=== PATIENT | female | born 1990 | race Caucasian/White ===

== ENCOUNTER 2023-06-01 11:26 | Outpatient (CLI) | payer OTHER, SELFPAY ==
--- NOTE | 2023-06-01 11:30 | CRLHL7_ITS ---
For Patients: As a result of the Cures Act, medical imaging exams and procedure reports are released immediately into your electronic medical record. You may view this report before your referring provider. If you have questions, please contact your health care provider. INDICATION: Cervicalgia. COMPARISON: None TECHNIQUE: CT of the cervical spine without contrast. Multiplanar axial, coronal, and sagittal reformats were reconstructed. FINDINGS: No fracture or dislocation. No disc degenerative change. No facet degenerative change. No severe neural foraminal stenosis. No central canal stenosis. No focal bony lesions. Left thyroid nodules. IMPRESSION: 1. Normal cervical spine CT. 2. Left thyroid nodules. Recommend thyroid ultrasound. Please note that all CT scans at this facility use dose modulation, iterative reconstruction, and/or weight-based dosing when appropriate to reduce radiation dose to as low as reasonably achievable. Dictated by Azucena Choudhary MD @ 06/01/2023 12:36:42 PM (Electronically Signed)
== END 2023-06-01 11:27 | disposition home or self-care (01) ==
PROVIDERS: PCP Family Medicine; Visit Provider Nurse Practitioner Family
DX: M54.2 Cervicalgia (principal); E04.1 Nontoxic single thyroid nodule
CPT/HCPCS: 72125; 81015; 85025

== ENCOUNTER 2023-06-03 10:45 | Outpatient (CLI) | payer OTHER, SELFPAY ==
--- NOTE | 2023-06-03 11:00 | CRLHL7_ITS ---
For Patients: As a result of the Cures Act, medical imaging exams and procedure reports are released immediately into your electronic medical record. You may view this report before your referring provider. If you have questions, please contact your health care provider. INDICATION: Thyroid nodules. TECHNIQUE: Ultrasound thyroid with adorno-scale and color Doppler analysis. COMPARISON: CT cervical spine May 24, 2023. FINDINGS: Right lobe: 4.6 x 0.9 x 1.4 cm. Lesion 1: 0.5 cm, mixed, TR3. Left lobe: 4.4 x 1.3 x 1.6 cm. Lesion 1: 1.3 x 1.1 x 0.9 cm, mixed, TR3. Lesion 2: 0.7 cm, cystic, TR2. Isthmus: Unremarkable. Echotexture of the thyroid parenchyma is normal. Color Doppler analysis demonstrates normal vascularity. No evidence of lymphadenopathy or parathyroid mass. IMPRESSION: There are 3 distinct thyroid nodules. The largest and most suspicious is in the left lobe measuring up to 1.3 cm with a TI-RADS category of TR3. - ACR TI-RADS [email or web address] TR1: Benign No FNA TR2: Not Suspicious No FNA TR3: Mildly Suspicious FNA if greater than or equal to 2.5 cm Follow if greater than or equal to 1.5 cm TR4: Moderately Suspicious FNA if greater than or equal to 1.5 cm Follow if greater than or equal to 1 cm TR5: Highly Suspicious FNA if greater than or equal to 1 cm Follow if greater than or equal to 0.5 cm Dictated by Tyler Reynolds MD @ 06/04/2023 11:16:42 AM (Electronically Signed)
== END 2023-06-03 10:46 | disposition home or self-care (01) ==
LOC: US 10:47
PROVIDERS: PCP Family Medicine; Visit Provider Nurse Practitioner Family
DX: E04.1 Nontoxic single thyroid nodule (principal)
CPT/HCPCS: 76536

== ENCOUNTER 2023-06-07 10:53 | Outpatient (CLI) | payer OTHER, SELFPAY | END 2023-06-07 10:54 | disposition home or self-care (01) | PROVIDERS: PCP Family Medicine; Visit Provider Family Medicine | DX: E04.1 Nontoxic single thyroid nodule (principal) | CPT/HCPCS: 84443 ==

== ENCOUNTER 2023-08-04 10:30 | Outpatient (RCR) | payer OTHER, SELFPAY | END 2023-08-04 11:37 | disposition home or self-care (01) | PROVIDERS: PCP Family Medicine; Visit Provider Nurse Practitioner Family | DX: M54.50 Low back pain, unspecified (principal); M54.2 Cervicalgia; R10.9 Unspecified abdominal pain; M25.511 Pain in right shoulder; M25.512 Pain in left shoulder; V89.2XXA Person injured in unspecified motor-vehicle accident, traffic, initial encounter; Z74.09 Other reduced mobility; Z51.89 Encounter for other specified aftercare | CPT/HCPCS: 97110; 97140; 97161 ==

== ENCOUNTER 2023-08-17 07:07 | Outpatient (CLI) | payer OTHER, SELFPAY ==
--- OUTSIDE RECORDS SUMMARY | 2023-08-17 07:10 | XMS_ITS | Encounter Summary ---
Author Name Unknown Organization [facility] Address [address] [place] [address] Care Team Providers Care Prosthetist Name Role Phone Unavailable Primary Care Provider Unavailabl e Encounter Details Date Type Department Care Team (Latest Contact Info) Description 07/19/2023 3:16 PM SKIP HOIST OPERATOR - 07/19/2023 11:59 PM SKIP HOIST OPERATOR Hospital Encounter Department of Laboratory Medicine and Pathology, [facility] in [place], [place] [address] [place] [address] Alden John M.D. [address] [place] [phone] Nodule Thyroid Nontoxic Discharge Disposition: Home or Self Care Social History Tobacco Use Types Packs/Day Years Used Date Smoking Tobacco: Never Assessed [facility] Utilities Answer Date Recorded In the past 12 months has [facility] [employer], gas, oil, or water [employer] threatened to shut off services in your home? No 07/15/2023 Exercise Vital Sign Answer Date Recorde d On average, how many days pe r week do you engage in moderate to strenuous exercise (like a brisk walk)? 3 days 07/15/2023 On average, how many minutes do you engage in exercise at this level? 30 min 07/15/2023 Hunger Vital Sign Answer Date Recorded Within the past 12 months, y ou worried that your food would run out before you got the money to buy more. Never true 07/15/19 24 Within the past 12 months, t he food you bought just didn't last and you didn't have money to get more. Never true 07/15/2023 PRAPARE - Transportation Answer Date Re corded In the past 12 months, has l ack of transportation kept you from medical appointments or from getting medications? No 07/05 In the past 12 months, has l ack of transportation kept you from meetings, work, or from getting things needed for daily living? No 07/15/2023 Nutrition Answer Date Recorded Nutrition: EVOO Fat Source Unknown 07/15 On average, how many serving s of fruits and vegetables do you eat per day (serving size is equal to 1 cup or approximately the size of a tennis ball)? 0-2 07/15/2023 Dental Answer Date Recorded Dental: Regular Dentist Yes 07/15/19 Employment Answer Date Recorded Employment status Employed and actively working without restrictions 07/15/2023 Housing Stability Answer Date Recorded What is your living situation today? [facility] 07/15/2023 Sex and Gender Information Value Date Recorded Sex Assigned at Female 06/07/2023 10:27 AM SKIP HOIST OPERATOR Gender Identity Female 06/07/2023 10:27 AM SKIP HOIST OPERATOR Sexual Orientation Straight 06/07/2023 10 :27 AM SKIP HOIST OPERATOR documented as of this encounter Medications at Time of Discharge Medication Sig Dispensed Refills Start Date End Date albuterol 90 mcg/actuation inhaler Inhale 2 puffs every 4 (four) hours as needed for shortness of breath or wheezing. 0 ascorbic acid, vitamin C, (VITAMIN C) 100 mg tablet Take 1 tablet by mouth daily. 0 08/09/2012 Ativan 1 mg tablet Take 1 mg by mouth 2 (two) times a day as needed. 0 buPROPion XL (WELLBUTRIN XL) 150 mg 24 hr tablet Take 150 mg by mouth every morning. 0 04/20/2023 cholecalciferol (VITAMIN D3) 25 mcg (1,000 Unit) capsule Take 1 capsule by mouth daily. 0 08/09/2012 cyclobenzaprine (FLEXERIL) 5 mg tablet Take 1 tablet by mouth 3 (three) times a day with meals. 0 05/30/2023 hydrOXYzine (ATARAX) 25 mg tablet Take 25 mg by mouth 3 (three) times a day. 0 hydrOXYzine (VISTARIL) 25 mg capsule Take 25 mg by mouth every 6 (six) hours as needed for anxiety. 0 05/12/2023 ibuprofen (MOTRIN) 800 mg tablet Take 800 mg by mouth 3 (three) times a day as needed. 0 05/01/2014 nitrofurantoin (MACRODANTIN) 100 mg capsule Take 100 mg by mouth 4 (four) times a day. 0 05/30/2023 norgestrel-ethinyl estradioL (LOW-OGESTREL,CRYSELLE) 0.3 mg-30 mcg per tablet Take 1 tablet by mouth daily. 0 05/07/2017 SUMAtriptan (IMITREX) 100 mg tablet Take 100 mg by mouth every 2 (two) hours as needed. 0 05/07/2017 traZODone (DESYREL) 100 mg tablet Take 100 mg by mouth at bedtime as needed. 0 04/24/2014 VITAMIN B COMPLEX ORAL Take 1 tablet by mouth daily. 0 08/09/2012 documented as of this encounter Plan of Treatment Not on file documented as of this encounter Procedures Procedure Name Priority Date/Time Associated Diagnosis Comments THYROPEROXIDASE (TPO) ABS, S Routine 07/19/2023 3:31 PM SKIP HOIST OPERATOR Nodule Thyroid Nontoxic T3 (TRIIODOTHYRONINE), TOT, S Routine 07/19/2023 3:31 PM SKIP HOIST OPERATOR Nodule Thyroid Nontoxic THYROID-STIMULATING HORMONE-SENSITIVE (S-TSH) Routine 07/19/2023 3:31 PM SKIP HOIST OPERATOR Nodule Thyroid Nontoxic T4 (THYROXINE), FREE, S Routine 07/19/19 3:31 PM SKIP HOIST OPERATOR Nodule Thyroid Nontoxic documented in this encounter Results * Thyroperoxidase (TPO) Antibodies (07/19/2023 3:31 PM SKIP HOIST OPERATOR) Thyroperoxidase Ab, S <15.0 <34.0 IU/mL 07/19/2023 4:39 PM SKIP HOIST OPERATOR DTL Blood (Blood, Venous) 07/19/2023 3:31 PM SKIP HOIST OPERATOR 07/19/2023 4:06 PM SKIP HOIST OPERATOR Alden N Alvaro M.D. LAB BLOOD ADD-ON Performing Organization Address City/[facility]/ZIP Co de Phone Number [facility] [address] [place] [address] * S-TSH (Thyroid-Stimulating Hormone - Sensitive) (07/19/2023 3:31 PM SKIP HOIST OPERATOR) TSH, Sensitive 0.8 0.3 - 4.2 mIU/L 07/19/2023 4:39 PM SKIP HOIST OPERATOR DTL Blood (Blood, Venous) 07/19/2023 3:31 PM SKIP HOIST OPERATOR 07/19/2023 4:06 PM SKIP HOIST OPERATOR Alden John M.D. LAB BLOOD ADD-ON Performing Organization Address [facility] Co de Phone Number [facility] [address] [place] [address] * T4 (Thyroxine), Free (07/19/2023 3:31 PM SKIP HOIST OPERATOR) T4 (Thyroxine), Free, S 1.1 0.9 - 1.7 ng/dL 07/19/2023 4:39 PM SKIP HOIST OPERATOR DTL Blood (Blood, Venous) 07/19/2023 3:31 PM SKIP HOIST OPERATOR 07/19/2023 4:06 PM SKIP HOIST OPERATOR Alden John M.D. LAB BLOOD ADD-ON Performing Organization Address City/[facility]/ZIP Co de Phone Number [facility] [address] [place] [address] * T3 (Triiodothyronine), Total (07/19/2023 3:31 PM SKIP HOIST OPERATOR) T3 (Triiodothyroni ne), Total, S 113 80 - 200 ng/dL 07/19/2023 4:39 PM SKIP HOIST OPERATOR DTL Blood (Blood, Venous) 07/19/2023 3:31 PM SKIP HOIST OPERATOR 07/19/2023 4:06 PM SKIP HOIST OPERATOR Alden John M.D. LAB BLOOD ADD-ON [facility] [address] [place] [address], [facility] DTL [facility] 200 [place] [address] documented in this encounter Visit Diagnoses Diagnosis Nodule Thyroid Nontoxic documented in this encounter
--- OUTSIDE RECORDS SUMMARY | 2023-08-17 07:10 | XMS_ITS | Referral Summary ---
Author Name Unknown Organization [facility] Address [address] [place] [address] Care Team Providers Care Embossing Press Operator Apprentice Name Role Phone Unavailable Primary Care Provider Unavailabl e Source Comments Patient records contain information from all sites at [facility]. For routine questions regarding patient records, call [phone] during business hours, M-F 8:00 AM - 5:00 PM Central Time. Record requests for emergency care only can be directed to [phone] at any time.[facility] Encounters Date Type Department Care Team Description 07/19/2023 3:16 PM EMPLOYMENT INTERVIEWER - 07/19/2023 11:59 PM EMPLOYMENT INTERVIEWER Hospital Encounter Department of Laboratory Medicine and Pathology, [facility], in [place], [place] [address] [place] [address] Alden John M.D. Nodule Thyroid Nontoxic Discharge Disposition: Home or Self Care 07/19/2023 2:30 PM EMPLOYMENT INTERVIEWER Comprehensive Visit Division of Endocrinology in [place], [place] [address] [place] [address] Alden John M.D. Nodule Thyroid Nontoxic (Primary Dx) 06/25/2023 Clinical Communication Division of Endocrinology in [place], [place] [address] [place] [phone] Provider, Unknown [facility] - Outside Materials from Last 3 Months Allergies No known active allergies Medications Medication Sig Dispensed Refills Start Date End Date Status albuterol 90 mcg/actuation inhaler Inhale 2 puffs every 4 (four) hours as needed for shortness of breath or wheezing. 0 Active ascorbic acid, vitamin C, (VITAMIN C) 100 mg tablet Take 1 tablet by mouth daily. 0 08/09/2012 Active buPROPion XL (WELLBUTRIN XL) 150 mg 24 hr tablet Take 150 mg by mouth every morning. 0 04/20/2023 Active cholecalciferol (VITAMIN D3) 25 mcg (1,000 Unit) capsule Take 1 capsule by mouth daily. 0 08/09/2012 Active cyclobenzaprine (FLEXERIL) 5 mg tablet Take 1 tablet by mouth 3 (three) times a day with meals. 0 05/30/2023 Active hydrOXYzine (ATARAX) 25 mg tablet Take 25 mg by mouth 3 (three) times a day. 0 Active hydrOXYzine (VISTARIL) 25 mg capsule Take 25 mg by mouth every 6 (six) hours as needed for anxiety. 0 05/12/2023 Active ibuprofen (MOTRIN) 800 mg tablet Take 800 mg by mouth 3 (three) times a day as needed. 0 05/01/2014 Active Ativan 1 mg tablet Take 1 mg by mouth 2 (two) times a day as needed. 0 Active nitrofurantoin (MACRODANTIN) 100 mg capsule Take 100 mg by mouth 4 (four) times a day. 0 05/30/2023 Active norgestrel-ethinyl estradioL (LOW-OGESTREL,CRYSELL E) 0.3 mg-30 mcg per tablet Take 1 tablet by mouth daily. 0 05/07/2017 Active SUMAtriptan (IMITREX) 100 mg tablet Take 100 mg by mouth every 2 (two) hours as needed. 0 05/07/2017 Active traZODone (DESYREL) 100 mg tablet Take 100 mg by mouth at bedtime as needed. 0 04/24/2014 Active VITAMIN B COMPLEX ORAL Take 1 tablet by mouth daily. 0 08/09/2012 Active Social History Tobacco Use Types Packs/Day Years Used Date Smoking Tobacco: Never Assessed [facility] Utilities Answer Date Recorded In the past 12 months has [employer], or water [employer] threatened to shut off services in your [...] your living situation today? [facility] live 07/15/2023 Sex and Gender Information Value Date Recorded Sex Assigned at Female 06/07/2023 10:27 AM EMPLOYMENT INTERVIEWER Gender Identity Female 06/07/2023 10:27 AM EMPLOYMENT INTERVIEWER Sexual Orientation Straight 06/07/2023 10 :27 AM EMPLOYMENT INTERVIEWER Last Filed Vital Signs Vital Sign Reading Time Taken Comments Blood Pressure 111/78 07/19/2023 2:23 PM EMPLOYMENT INTERVIEWER Pulse 80 07/19/2023 2:23 PM EMPLOYMENT INTERVIEWER Temperature - - Respiratory Rate - - Oxygen Saturation - - Inhaled Oxygen Concentration - - Weight 86 kg (189 lb 9.5 oz) 07/19/2023 2:23 PM EMPLOYMENT INTERVIEWER Height 175.1 cm (5' 8.94) 07/19/2023 2:23 PM CS T Body Mass Index 28.05 07/19/2023 2:23 PM EMPLOYMENT INTERVIEWER Plan of Treatment Not on file Procedures Procedure Name Priority Date/Time Associated Diagnosis Comments THYROPEROXIDASE (TPO) ABS, S Routine 07/19/2023 3:31 PM EMPLOYMENT INTERVIEWER Nodule Thyroid Nontoxic THYROID-STIMULATING HORMONE-SENSITIVE (S-TSH) Routine 07/19/2023 3:31 PM EMPLOYMENT INTERVIEWER Nodule Thyroid Nontoxic T4 (THYROXINE), FREE, S Routine 07/19/19 3:31 PM EMPLOYMENT INTERVIEWER Nodule Thyroid Nontoxic T3 (TRIIODOTHYRONINE), TOT, S Routine 07/19/2023 3:31 PM EMPLOYMENT INTERVIEWER Nodule Thyroid Nontoxic OUTSIDE US BODY Routine 06/03/2023 10:55 AM EMPLOYMENT INTERVIEWER OUTSIDE CT NEURO Routine 06/01/2023 12:0 5 PM EMPLOYMENT INTERVIEWER from Last 3 Months Results * Thyroperoxidase (TPO) Antibodies (07/19/2023 3:31 PM EMPLOYMENT INTERVIEWER) Thyroperoxidase Ab, S <15.0 <34.0 IU/mL 07/19/2023 4:39 PM EMPLOYMENT INTERVIEWER DTL Blood (Blood, Venous) 07/19/2023 3:31 PM EMPLOYMENT INTERVIEWER 07/19/2023 4:06 PM EMPLOYMENT INTERVIEWER Alden John M.D. LAB BLOOD ADD-ON [facility] [place] [address] [place] [address], [facility] DTL [facility] [address] [place] [address] * T3 (Triiodothyronine), Total (07/19/2023 3:31 PM EMPLOYMENT INTERVIEWER) T3 (Triiodothyroni ne), Total, S 113 80 - 200 ng/dL 07/19/2023 4:39 PM EMPLOYMENT INTERVIEWER DTL Blood (Blood, Venous) 07/19/2023 3:31 PM EMPLOYMENT INTERVIEWER 07/19/2023 4:06 PM EMPLOYMENT INTERVIEWER lAden John M.D. LAB BLOOD ADD-ON Performing Organization Address [facility] Co de Phone Number [facility] [place] [address] [place] [address], [facility] 200 [place] [address] * S-TSH (Thyroid-Stimulating Hormone - Sensitive) (07/19/2023 3:31 PM EMPLOYMENT INTERVIEWER) TSH, Sensitive 0.8 0.3 - 4.2 mIU/L 07/19/2023 4:39 PM EMPLOYMENT INTERVIEWER DTL Blood (Blood, Venous) 07/19/2023 3:31 PM EMPLOYMENT INTERVIEWER 07/19/2023 4:06 PM EMPLOYMENT INTERVIEWER Alden John M.D. LAB BLOOD ADD-ON Performing Organization Address [facility] Co de Phone Number [facility] [place] [address] [place], [place] [phone] [place] [address] 200 [place] [address] * T4 (Thyroxine), Free (07/19/2023 3:31 PM EMPLOYMENT INTERVIEWER) T4 (Thyroxine), Free, S 1.1 0.9 - 1.7 ng/dL 07/19/2023 4:39 PM EMPLOYMENT INTERVIEWER DT Blood (Blood, Venous) 07/19/2023 3:31 PM EMPLOYMENT INTERVIEWER 07/19/2023 4:06 PM EMPLOYMENT INTERVIEWER Alden John M.D. LAB BLOOD ADD-ON Performing Organization Address City/[facility] Co de Phone Number [facility] [place] [address] [place], [place] [phone] [place] [address] [address] [place] [address] * US THYROID-Outside US Body (06/03/2023 10:55 AM EMPLOYMENT INTERVIEWER) Narrative [facility] - 07/02/2023 1:55 PM EMPLOYMENT INTERVIEWER This order has been created and auto-finalized to support the import of outside images. If available, original interpretation can be found on the Media Tab in Chart Review, in Document Viewer, or as an image in QREADS. If a re-interpretation or overread is required please follow defined workflow. ?? Provider Not In System IMG US PROCEDURES Performing Organization Address City/[facility]/ZIP Co de Phone Number [facility] NA * CT cervical spine wo con-Outside CT Neuro (06/01/2023 12:05 PM EMPLOYMENT INTERVIEWER) Narrative [facility] - 07/02/2023 1:59 PM EMPLOYMENT INTERVIEWER This order has been created and auto-finalized to support the import of outside images. If available, original interpretation can be found on the Media Tab in Chart Review, in Document Viewer, or as an image in QREADS. If a re-interpretation or overread is required please follow defined workflow. ?? Provider Not In System IMG CT PROCEDURES Performing Organization Address [facility] Co de Phone Number [facility] NA from Last 3 Months
--- OUTSIDE RECORDS SUMMARY | 2023-08-17 07:10 | XMS_ITS | Clinical Summary ---
Author Name Unknown Organization [facility] Address [place], [place] [address] Care Team Providers Care Retail Loss Prevention Officer Name Role Phone Pcp, No Primary Care Provider Unavailabl e Allergies No known active allergies Medications Medication Sig Dispensed Refills Start Date End Date Status cholecalciferol (VITAMIN D) 1,000 unit capsule Take 1 capsule by mouth once daily. 0 08/09/2012 Active ascorbic acid (VITAMIN C) 100 mg tablet Take 1 tablet by mouth once daily. 0 08/09/2012 Active vitamin B complex (VITAMIN B COMPLEX) tablet Take 1 tablet by mouth once daily. 0 08/09/2012 Active traZODone (DESYREL) 100 mg tabletIndications:Inso mnia, unspecified Take 1 tablet by mouth at bedtime if needed for Sleep. 90 tablet 3 04/24/2014 Active ibuprofen (ADVIL; MOTRIN) 800 mg tabletIndications:Back muscle spasm,Neck muscle spasm,Rotator cuff strain Take 1 tablet by mouth 3 times daily if needed. 90 tablet 0 05/01/2014 Active albuterol HFA 90 mcg/actuation inhalerIndications:Eugenia ctive airway disease, mild intermittent, uncomplicated Inhale 2 Puffs by mouth 4 times daily if needed. 1 Inhaler 0 03/27/2016 Active SUMAtriptan (IMITREX) 100 mg tabletIndications:Migr rene without aura and with status migrainosus, not intractable Take 1 tablet by mouth every 2 hours if needed for Migraine. Max dose: 200mg per 24 hrs. 9 tablet 3 05/07/2017 Active norgestrel-ethinyl estradiol, 0.3-30 mg-mcg, (LO-OVRAL) 0.3-30 mg-mcg tabletIndications:Enco unter for initial prescription of contraceptive pills Take 1 tablet by mouth once daily. 3 Packet 3 05/07/2017 Active Active Problems Problem Noted Date Diagnosed Date Anxiety state, unspecified 04/24/2014 Major depression, single episode 04/24/2014 Insomnia, unspecified 04/24/2014 [place] of foot 04/24/2014 Migraine, unspecified, witho ut mention of intractable migraine without mention of status migrainosus 08/28/2008 Resolved Problems Problem Noted Date Diagnosed Date Resolved Date Surveillance of previously p rescribed intrauterine contraceptive device 05/08/20142014 Overview: Mirena placed 05/08/2014. Controlled substance agreement signed 05/01/2014 03/27/2016 Major depressive disorder, s hernan episode, unspeci 11/08/2009 04/24/2014 Immunizations Name Administration Dates Next Due Human Papilloma Virus Vaccine 12/30/2012, 013,09/27/2009 Influenza, IIV3 (Age >=3 years) 04/04/2014 Tdap 08/09/2012 Family History Medical History Relation Name Comments Good Health Brother Good Health Father Other Maternal Grandfather lung ca ncer Cancer Maternal Grandmother abdomin al Good Health Mother Good Health Sister Cancer-breast No Family History great aun t Relation Name Status Comments Brother Father Maternal Grandfather Maternal Grandmother Mother Sister Social History Tobacco Use Types Packs/Day Years Used Date Smoking Tobacco: Every Day Cigarettes 0.5 4 Smokeless Tobacco: Never Tobacco Cessation:Ready to Q uit: No; Counseling Given: Yes Comments:smokes less than a pack a day. Alcohol Use Standard Drinks/Week Comments No 0 (1 standard drink = 0.6 oz pur e alcohol) Sex and Gender Information Value Date Recorded Sex Assigned at Not on file Gender Identity Not on file Sexual Orientation Not on file Obstetrics History Para Term AB IAB SAB Ectopic Multiple Livin g Live Births 0 0 0 0 0 0 0 0 0 0 Last Filed Vital Signs Vital Sign Reading Time Taken Comments Blood Pressure 110/80 05/12/2017 7:57 AM ACCOUNTS PAYABLE COORDINATOR Pulse 108 05/12/2017 7:57 AM ACCOUNTS PAYABLE COORDINATOR Temperature 36.8 ??C (98.2 ??F) 05/12/2017 7:57 AM CS T Respiratory Rate 20 05/12/2017 7:57 AM ACCOUNTS PAYABLE COORDINATOR Oxygen Saturation 99% 05/12/2017 7:57 AM ACCOUNTS PAYABLE COORDINATOR Inhaled Oxygen Concentration - - Weight 83.2 kg (183 lb 8 oz) 05/12/2017 7:57 AM ACCOUNTS PAYABLE COORDINATOR Height 172 cm (5' 7.72) 05/07/2017 9:12 AM CDT Body Mass Index 28.13 05/07/2017 9:12 AM CDT Plan of Treatment Health Maintenance Due Date Last Done Comments COVID-19 vaccine series (#1) 1992 Hepatitis C screening for age 18-79 01/08/2010 BMI (ht and wt on same day) for age 18+ 05/07/2018 05/07/2017, 01/26/2017, 01/25/2017, Additional history exists Depression screening for age 12+ 05/07/2018 05/07/2017, 04/13/2016 Tetanus booster 08/09/2022 08/09/2012 Influenza for age 9-49 03/05/2023 05/03/2014, 2013 Pap test for age 21-65 03/25/2023 03/25/2020, 2012 Tdap Completed 08/09/2012 HIV for age 15-65 Completed 02/03/2013 Pneumococcal series for age 6-64 Aged Out No longer eligible based on patient's age to complete this topic Care Teams Retail Loss Prevention Officer Relationship Specialty Start Date End Date Pcp, No . PCP - General 03/26/19
--- OUTSIDE RECORDS SUMMARY | 2023-08-17 07:10 | XMS_ITS | Clinical Summary ---
Author Name Unknown Organization [facility] Address [address] [place] [address] Care Team Providers Care Support Specialist Name Role Phone Unavailable Primary Care Provider Unavailabl e Source Comments Patient records contain information from all sites at [facility]. For routine questions regarding patient records, call [phone] during business hours, M-F 8:00 AM - 5:00 PM Central Time. Record requests for emergency care only can be directed to [phone] at any time.[facility] Allergies No known active allergies Medications Medication [...] tablet by mouth daily. 0 08/09/2012 Active Encounters Date Type Department Care Team Description 07/19/2023 3:16 PM FISHING TOOL SUPERVISOR - 07/19/2023 11:59 PM FISHING TOOL SUPERVISOR Hospital Encounter Department of Laboratory Medicine and Pathology, [facility] in [place], [place] [address] [place] [address] Alden John M.D. Nodule Thyroid Nontoxic Discharge Disposition: Home or Self Care 07/19/2023 2:30 PM FISHING TOOL SUPERVISOR Comprehensive Visit Division of Endocrinology in [place], [place] [address] [place] [address] Alden John M.D. Nodule Thyroid Nontoxic (Primary Dx) 06/25/2023 Clinical Communication Division of Endocrinology in [place], [place] [address] [place] [phone] Provider, Unknown OSM - Outside Materials from Last 3 Months Social History Tobacco Use Types Packs/Day Years Used Date Smoking Tobacco: Never Assessed [facility] Utilities Answer Date Recorded In the past 12 months has [employer], [employer], oil, or water [employer] threatened to shut off services in your [...] money to buy more. Never true 07/15/19 Within the past 12 months, t he [...] your living situation today? I have a [facility] place to live 07/15/2023 Sex and Gender Information Value Date Recorded Sex Assigned at Female 06/07/2023 10:27 AM FISHING TOOL SUPERVISOR Gender Identity Female 06/07/2023 10:27 AM FISHING TOOL SUPERVISOR Sexual Orientation Straight 06/07/2023 10 :27 AM FISHING TOOL SUPERVISOR Last Filed Vital Signs Vital Sign Reading Time Taken Comments Blood Pressure 111/78 07/19/2023 2:23 PM FISHING TOOL SUPERVISOR Pulse 80 07/19/2023 2:23 PM FISHING TOOL SUPERVISOR Temperature - - Respiratory Rate - - Oxygen Saturation - - Inhaled Oxygen Concentration - - Weight 86 kg (189 lb 9.5 oz) 07/19/2023 2:23 PM FISHING TOOL SUPERVISOR Height 175.1 cm (5' 8.94) 07/19/2023 2:23 PM CS T Body Mass Index 28.05 07/19/2023 2:23 PM FISHING TOOL SUPERVISOR Plan of Treatment Health Maintenance Due Date Last Done Comments Cervical Cancer Screening 1992 HIV Screening 1992 Hepatitis C Screening 1992 COVID-19 Vaccine ( season) 2023 04/02/2021, 03/12/2021 Depression Screening (Annual PHQ-2) 07/05/2023 DTaP,Tdap,and Td Vaccines (4 - Td or Tdap) 04/20/2033 04/20/2023, 08/09/2012, 02/05/2005 Hepatitis B Vaccines Completed 09/04/2005, 03/30/2005, 02/26/2005 HPV Vaccines Completed 12/30/2012, 12/04, 08/09/2012, Additional history exists Influenza Vaccine Completed 04/15/2023, , 03/27/2021, Additional history exists Pneumococcal vaccine (0-64 years) Aged Out No longer eligible based on patient's age to complete this topic Procedures Procedure Name Priority Date/Time Associated Diagnosis Comments THYROPEROXIDASE (TPO) ABS, S Routine 07/19/2023 3:31 PM FISHING TOOL SUPERVISOR Nodule Thyroid Nontoxic THYROID-STIMULATING HORMONE-SENSITIVE (S-TSH) Routine 07/19/2023 3:31 PM FISHING TOOL SUPERVISOR Nodule Thyroid Nontoxic T4 (THYROXINE), FREE, S Routine 07/19/19 3:31 PM FISHING TOOL SUPERVISOR Nodule Thyroid Nontoxic T3 (TRIIODOTHYRONINE), TOT, S Routine 07/19/2023 3:31 PM FISHING TOOL SUPERVISOR Nodule Thyroid Nontoxic OUTSIDE US BODY Routine 06/03/2023 10:55 AM FISHING TOOL SUPERVISOR OUTSIDE CT NEURO Routine 06/01/2023 12:0 5 PM FISHING TOOL SUPERVISOR from Last 3 Months Results * Thyroperoxidase (TPO) Antibodies (07/19/2023 3:31 PM FISHING TOOL SUPERVISOR) Thyroperoxidase Ab, S <15.0 <34.0 IU/mL 07/19/2023 4:39 PM FISHING TOOL SUPERVISOR DTL Blood (Blood, Venous) 07/19/2023 3:31 PM FISHING TOOL SUPERVISOR 07/19/2023 4:06 PM FISHING TOOL SUPERVISOR Alden John M.D. LAB BLOOD ADD-ON Performing Organization Address City/[facility]/ZIP Co de Phone Number [facility] 200 [place], [place] [id number] [place] [address] 200 [place] [address] * T3 (Triiodothyronine), Total (07/19/2023 3:31 PM FISHING TOOL SUPERVISOR) T3 (Triiodothyroni ne), Total, S 113 80 - 200 ng/dL 07/19/2023 4:39 PM FISHING TOOL SUPERVISOR DTL Blood (Blood, Venous) 07/19/2023 3:31 PM FISHING TOOL SUPERVISOR 07/19/2023 4:06 PM FISHING TOOL SUPERVISOR Alden John M.D. LAB BLOOD ADD-ON Performing Organization Address City/[facility]/ZIP Co de Phone Number [facility] [address] [place], [place] [id number] [place] [address] 200 [place] [address] * S-TSH (Thyroid-Stimulating Hormone - Sensitive) (07/19/2023 3:31 PM FISHING TOOL SUPERVISOR) Pathologist [facility] TSH, Sensitive 0.8 0.3 - 4.2 mIU/L 07/19/2023 4:39 PM FISHING TOOL SUPERVISOR DTL Blood (Blood, Venous) 07/19/2023 3:31 PM FISHING TOOL SUPERVISOR 07/19/2023 4:06 PM FISHING TOOL SUPERVISOR Alden John M.D. LAB BLOOD ADD-ON Performing Organization Address City/[facility]/ZIP Co de Phone Number [facility] [address] [place] [address] * T4 (Thyroxine), Free (07/19/2023 3:31 PM FISHING TOOL SUPERVISOR) T4 (Thyroxine), Free, S 1.1 0.9 - 1.7 ng/dL 07/19/2023 4:39 PM FISHING TOOL SUPERVISOR DTL Blood (Blood, Venous) 07/19/2023 3:31 PM FISHING TOOL SUPERVISOR 07/19/2023 4:06 PM FISHING TOOL SUPERVISOR Alden John M.D. LAB BLOOD ADD-ON Performing Organization Address City/[facility] Co de Phone Number [facility] [address] [place] [address], [place] DTL [facility] [address] [place] [address] * US THYROID-Outside US Body (06/03/2023 10:55 AM FISHING TOOL SUPERVISOR) Narrative [facility] - 07/02/2023 1:55 PM FISHING TOOL SUPERVISOR This order has been created and auto-finalized to support the import of outside images. If available, original interpretation can be found on the Media Tab in Chart Review, in Document Viewer, or as an image in QREADS. If a re-interpretation or overread is required please follow defined workflow. ?? Provider Not In System IMG US PROCEDURES Performing Organization Address [facility] Co de Phone Number [facility] NA * CT cervical spine wo con-Outside CT Neuro (06/01/2023 12:05 PM FISHING TOOL SUPERVISOR) Narrative [facility] - 07/02/2023 1:59 PM FISHING TOOL SUPERVISOR This order has been created and auto-finalized to support the import of outside images. If available, original interpretation can be found on the Media Tab in Chart Review, in Document Viewer, or as an image in QREADS. If a re-interpretation or overread is required please follow defined workflow. ?? Provider Not In System IMG CT PROCEDURES Performing Organization Address City/[facility] Co de Phone Number [facility] NA from Last 3 Months
--- OUTSIDE RECORDS SUMMARY | 2023-08-17 07:10 | XMS_ITS | Encounter Summary ---
Author Name Unknown Organization [facility] Address [address] [place] [address] Care Team Providers Care New Car Inspector Name Role Phone Unavailable Primary Care Provider Unavailabl e Reason for Visit * Reason Onset Date Comments OSM - Outside Materials 06/25/2023 Encounter Details Date Type Department Care Team (Latest Contact Info) Description 06/25/2023 Clinical Communication Division of Endocrinology in [place], [place] [address] [place] [address] Provider, Unknown OSM - Outside Materials Social History Tobacco Use Types Packs/Day Years Used Date Smoking Tobacco: Never Assessed [facility] Utilities Answer Date Recorded In the past 12 months has th e electric, gas, oil, or water company threatened to shut off services in your [...] your living situation today? I have a [facility] place to live 07/15/2023 Sex and Gender Information Value Date Recorded Sex Assigned at Female 06/07/2023 10:27 AM NURSE ANESTHESIA PROGRAM DIRECTOR Gender Identity Female 06/07/2023 10:27 AM NURSE ANESTHESIA PROGRAM DIRECTOR Sexual Orientation Straight 06/07/2023 10 :27 AM NURSE ANESTHESIA PROGRAM DIRECTOR documented as of this encounter Plan of Treatment Not on file documented as of this encounter Visit Diagnoses Not on filedocumented in this encounter
--- OUTSIDE RECORDS SUMMARY | 2023-08-17 07:10 | XMS_ITS ---
Author Name Unknown Organization [facility] Address [address] [place] [address] Care Team Providers Care Ct Scan Tech Name Role Phone Unavailable Unavailable Unavailable Surgery Details Not on file Complications Check Surgery Details section. Procedure Estimated Blood Loss Check Surgery Details section. Procedure Findings Check Surgery Details section. Procedure Specimens Taken Check Surgery Details section.
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
--- NOTE | 2023-08-17 07:15 | US_ITS ---
PELVIC ULTRASOUND TRANSABDOMINAL AND TRANSVAGINAL COMPARISON: NONE. INDICATION: INFERTILITY. TECHNIQUE: GRAYSCALE AND COLOR DOPPLER ULTRASOUND OF THE PELVIS PERFORMED USING TRANSABDOMINAL AND TRANSVAGINAL TECHNIQUE. FINDINGS: THE UTERUS MEASURES 9.3 X 4.3 X 4.9 CM. NO UTERINE FIBROID. THE ENDOMETRIUM APPEARS NORMAL AND MEASURES 1.1 CM. NO ENDOMETRIAL FLUID. THE LEFT OVARY MEASURES 3.0 X 2.2 X 1.8 CM. THE RIGHT OVARY MEASURES 4.0 X 2.0 X 3.8 CM. THERE IS A HYPOECHOIC STRUCTURE WITHIN THE RIGHT OVARY MEASURING 1.6 X 1.6 X 1.2 CM WITHOUT SIGNIFICANT INTERNAL BLOOD FLOW. A COLLAPSING CYST IS ALSO PRESENT WITHIN THE RIGHT OVARY MEASURING 2.0 X 1.5 X 1.9 CM. IMPRESSION: SOLID APPEARING LESION WITHIN THE RIGHT OVARY MEASURING 1.6 CM WITH NO DISCERNIBLE BLOOD FLOW, MOST CONSISTENT WITH ENDOMETRIOMA. THIS COULD BE FOLLOWED UP WITH ULTRASOUND IN THE NEXT 3-6 MONTHS OR PELVIC MRI. NORMAL ENDOMETRIUM MEASURING 1.1 CM. NO UTERINE FIBROID.
== END 2023-08-17 07:08 | disposition home or self-care (01) ==
LOC: US 07:08
PROVIDERS: PCP Family Medicine; Visit Provider Obstetrics & Gynecology
DX: N97.9 Female infertility, unspecified (principal)
CPT/HCPCS: 76830; 76856

== ENCOUNTER 2023-08-23 13:29 | Outpatient (REF) | payer OTHER, SELFPAY ==
--- OUTSIDE RECORDS SUMMARY | 2023-08-24 06:29 | XMS_ITS | Clinical Summary ---
Author Name Unknown Organization [facility] Address [address] [place] [address] Care Team Providers Care Final Touch Up Painter Name Role Phone Unavailable Primary Care Provider Unavailabl e Source Comments Patient records contain information from all sites at [facility]. For routine questions regarding patient records, call [phone] during business hours, M-F 8:00 AM - 5:00 PM Central Time. Record requests for emergency care only can be directed to [phone] at any time.[facility] Allergies No known active allergies Medications Medication [...] Department Care Team Description 07/19/2023 3:16 PM RADIOLOGY SPECIAL PROCEDURE TECH - 07/19/2023 11:59 PM RADIOLOGY SPECIAL PROCEDURE TECH Hospital Encounter Department of Laboratory Medicine and Pathology, [facility] in [place], [place] [address] [place] [address] Alden John M.D. Nodule Thyroid Nontoxic Discharge Disposition: Home or Self Care 07/19/2023 2:30 PM RADIOLOGY SPECIAL PROCEDURE TECH Comprehensive Visit Division of Endocrinology in [place], [place] [address] [place] [address] Alden John M.D. Nodule Thyroid Nontoxic (Primary Dx) 06/25/2023 Clinical Communication Division of Endocrinology in [place], [place] [address] [place] [phone] Provider, Unknown OSM - Outside Materials from Last 3 Months Social History Tobacco Use Types Packs/Day Years Used Date Smoking Tobacco: Never Assessed [facility] Utilities Answer Date Recorded In the past 12 months has [employer], oil, or water [employer] threatened to shut off services in your [...] your living situation today? I have a [facility] place to live 07/15/2023 Sex and Gender Information Value Date Recorded Sex Assigned at Female 06/07/2023 10:27 AM RADIOLOGY SPECIAL PROCEDURE TECH Gender Identity Female 06/07/2023 10:27 AM RADIOLOGY SPECIAL PROCEDURE TECH Sexual Orientation Straight 06/07/2023 10 :27 AM RADIOLOGY SPECIAL PROCEDURE TECH Last Filed Vital Signs Vital Sign Reading Time Taken Comments Blood Pressure 111/78 07/19/2023 2:23 PM RADIOLOGY SPECIAL PROCEDURE TECH Pulse 80 07/19/2023 2:23 PM RADIOLOGY SPECIAL PROCEDURE TECH Temperature - - Respiratory Rate - - Oxygen Saturation - - Inhaled Oxygen Concentration - - Weight 86 kg (189 lb 9.5 oz) 07/19/2023 2:23 PM RADIOLOGY SPECIAL PROCEDURE TECH Height 175.1 cm (5' 8.94) 07/19/2023 2:23 PM CS T Body Mass Index 28.05 07/19/2023 2:23 PM RADIOLOGY SPECIAL PROCEDURE TECH Plan of Treatment Health Maintenance Due Date [...] (TPO) ABS, S Routine 07/19/2023 3:31 PM RADIOLOGY SPECIAL PROCEDURE TECH Nodule Thyroid Nontoxic THYROID-STIMULATING HORMONE-SENSITIVE (S-TSH) Routine 07/19/2023 3:31 PM RADIOLOGY SPECIAL PROCEDURE TECH Nodule Thyroid Nontoxic T4 (THYROXINE), FREE, S Routine 07/19/19 3:31 PM RADIOLOGY SPECIAL PROCEDURE TECH Nodule Thyroid Nontoxic T3 (TRIIODOTHYRONINE), TOT, S Routine 07/19/2023 3:31 PM RADIOLOGY SPECIAL PROCEDURE TECH Nodule Thyroid Nontoxic OUTSIDE US BODY Routine 06/03/2023 10:55 AM RADIOLOGY SPECIAL PROCEDURE TECH OUTSIDE CT NEURO Routine 06/01/2023 12:0 5 PM RADIOLOGY SPECIAL PROCEDURE TECH from Last 3 Months Results * Thyroperoxidase (TPO) Antibodies (07/19/2023 3:31 PM RADIOLOGY SPECIAL PROCEDURE TECH) Thyroperoxidase Ab, S <15.0 <34.0 IU/mL 07/19/2023 4:39 PM RADIOLOGY SPECIAL PROCEDURE TECH DTL Blood (Blood, Venous) 07/19/2023 3:31 PM RADIOLOGY SPECIAL PROCEDURE TECH 07/19/2023 4:06 PM RADIOLOGY SPECIAL PROCEDURE TECH Alden John M.D. LAB BLOOD ADD-ON Performing Organization Address City/[facility]/ZIP Co de Phone Number [facility] 200 [place], [place] [phone] [place] [address] 200 [place] [address] * T3 (Triiodothyronine), Total (07/19/2023 3:31 PM RADIOLOGY SPECIAL PROCEDURE TECH) T3 (Triiodothyroni ne), Total, S 113 80 - 200 ng/dL 07/19/2023 4:39 PM RADIOLOGY SPECIAL PROCEDURE TECH DTL Blood (Blood, Venous) 07/19/2023 3:31 PM RADIOLOGY SPECIAL PROCEDURE TECH 07/19/2023 4:06 PM RADIOLOGY SPECIAL PROCEDURE TECH Alden John M.D. LAB BLOOD ADD-ON Performing Organization Address City/[facility]/ZIP Co de Phone Number [facility] [address] [place], [place] [id number] [place] [address] 200 [place] [address] * S-TSH (Thyroid-Stimulating Hormone - Sensitive) (07/19/2023 3:31 PM RADIOLOGY SPECIAL PROCEDURE TECH) Pathologist [facility] TSH, Sensitive 0.8 0.3 - 4.2 mIU/L 07/19/2023 4:39 PM RADIOLOGY SPECIAL PROCEDURE TECH DTL Blood (Blood, Venous) 07/19/2023 3:31 PM RADIOLOGY SPECIAL PROCEDURE TECH 07/19/2023 4:06 PM RADIOLOGY SPECIAL PROCEDURE TECH Alden John M.D. LAB BLOOD ADD-ON Performing Organization Address City/[facility]/ZIP Co de Phone Number [facility] [address] [place] [address] * T4 (Thyroxine), Free (07/19/2023 3:31 PM RADIOLOGY SPECIAL PROCEDURE TECH) T4 (Thyroxine), Free, S 1.1 0.9 - 1.7 ng/dL 07/19/2023 4:39 PM RADIOLOGY SPECIAL PROCEDURE TECH DTL Blood (Blood, Venous) 07/19/2023 3:31 PM RADIOLOGY SPECIAL PROCEDURE TECH 07/19/2023 4:06 PM RADIOLOGY SPECIAL PROCEDURE TECH Alden John M.D. LAB BLOOD ADD-ON Performing Organization Address City/[facility] Co de Phone Number [facility] [address] [place] [address], [place] DTL [facility] [address] [place] [address] * US THYROID-Outside US Body (06/03/2023 10:55 AM RADIOLOGY SPECIAL PROCEDURE TECH) Narrative [facility] - 07/02/2023 1:55 PM RADIOLOGY SPECIAL PROCEDURE TECH This order has been created and auto-finalized to support the import of outside images. If available, original interpretation can be found on the Media Tab in Chart Review, in Document Viewer, or as an image in QREADS. If a re-interpretation or overread is required please follow defined workflow. ?? Provider Not In System IMG US PROCEDURES Performing Organization Address [facility] Co de Phone Number [facility] NA * CT cervical spine wo con-Outside CT Neuro (06/01/2023 12:05 PM RADIOLOGY SPECIAL PROCEDURE TECH) Narrative [facility] - 07/02/2023 1:59 PM RADIOLOGY SPECIAL PROCEDURE TECH This order has been created and auto-finalized [...] Organization Address City/[facility] Co de Phone Number [facility] NA from Last 3 Months
--- OUTSIDE RECORDS SUMMARY | 2023-08-24 06:29 | XMS_ITS | Encounter Summary ---
Author Name Unknown Organization [facility] Address [address] [place] [address] Care Team Providers Care Solids Control Technician Name Role Phone Unavailable Primary Care Provider Unavailabl e Reason for Visit * Appointment Request (Routine) - Closed Specialty Diagnoses / Procedures Referred By Contac t Referred To Contact Endocrinology Diagnoses Nodule Thyroid Mirian Khalil, C.N.P. [address] [place] [address] Referral ID Status Reason Start Date Expiration Date Visits Re quested Visits Authorized [id number] Closed 06/07/2023 06/06/2024 1 1 Encounter Details Date Type Department Care Team (Latest Contact Info) Description 07/19/2023 2:30 PM PRODUCTION CONTROL SPECIALIST Comprehensive Visit Division of Endocrinology in [place], [place] [address] [place] [phone] Alden John M.D. [address] [place] [phone] Nodule Thyroid Nontoxic (Primary Dx) Social History Tobacco Use Types Packs/Day Years Used Date Smoking Tobacco: Never Assessed [facility] Utilities Answer Date Recorded In the [...] living situation today? I have a [facility] place to live 07/15/2023 Sex and Gender Information Value Date Recorded Sex Assigned at Female 06/07/2023 10:27 AM PRODUCTION CONTROL SPECIALIST Gender Identity Female 06/07/2023 10:27 AM PRODUCTION CONTROL SPECIALIST Sexual Orientation Straight 06/07/2023 10 :27 AM PRODUCTION CONTROL SPECIALIST documented as of this encounter Last Filed Vital Signs Vital Sign Reading Time Taken Comments Blood Pressure 111/78 07/19/2023 2:23 PM PRODUCTION CONTROL SPECIALIST Pulse 80 07/19/2023 2:23 PM PRODUCTION CONTROL SPECIALIST Temperature - - Respiratory Rate - - Oxygen Saturation - - Inhaled Oxygen Concentration - - Weight 86 kg (189 lb 9.5 oz) 07/19/2023 2:23 PM PRODUCTION CONTROL SPECIALIST Height 175.1 cm (5' 8.94) 07/19/2023 2:23 PM CS T Body Mass Index 28.05 07/19/2023 2:23 PM PRODUCTION CONTROL SPECIALIST documented in this encounter Consult Notes * [...] Alden John M.D. CT CT Job ID: [id number]/scott UCTION CONTROL SPECIALIST documented in this encounter Plan of Treatment Not on file documented as of this encounter Results * Thyroperoxidase (TPO) Antibodies (07/19/2023 3:31 PM PRODUCTION CONTROL SPECIALIST) Thyroperoxidase Ab, S <15.0 <34.0 IU/mL 07/19/2023 4:39 PM PRODUCTION CONTROL SPECIALIST DTL Blood (Blood, Venous) 07/19/2023 3:31 PM PRODUCTION CONTROL SPECIALIST 07/19/2023 4:06 PM PRODUCTION CONTROL SPECIALIST Alden John M.D. LAB BLOOD ADD-ON Performing Organization Address City/[facility]/ZIP Co de Phone Number [facility] [address] [facility] [place] 200 [place] [address] * S-TSH (Thyroid-Stimulating Hormone - Sensitive) (07/19/2023 3:31 PM PRODUCTION CONTROL SPECIALIST) TSH, Sensitive 0.8 0.3 - 4.2 mIU/L 07/19/2023 4:39 PM PRODUCTION CONTROL SPECIALIST DTL Blood (Blood, Venous) 07/19/2023 3:31 PM PRODUCTION CONTROL SPECIALIST 07/19/2023 4:06 PM PRODUCTION CONTROL SPECIALIST Alden John M.D. LAB BLOOD ADD-ON Performing Organization Address City/[facility]/ZIP Co de Phone Number [facility] [address] [facility] [place] 200 [place] [address] * T4 (Thyroxine), Free (07/19/2023 3:31 PM PRODUCTION CONTROL SPECIALIST) T4 (Thyroxine), Free, S 1.1 0.9 - 1.7 ng/dL 07/19/2023 4:39 PM PRODUCTION CONTROL SPECIALIST DTL Blood (Blood, Venous) 07/19/2023 3:31 PM PRODUCTION CONTROL SPECIALIST 07/19/2023 4:06 PM PRODUCTION CONTROL SPECIALIST Alden John M.D. LAB BLOOD ADD-ON [facility] [address] [place] [address], [facility] [address] [place] [address] * T3 (Triiodothyronine), Total (07/19/2023 3:31 PM PRODUCTION CONTROL SPECIALIST) T3 (Triiodothyroni ne), Total, S 113 80 - 200 ng/dL 07/19/2023 4:39 PM PRODUCTION CONTROL SPECIALIST DTL Blood (Blood, Venous) 07/19/2023 3:31 PM PRODUCTION CONTROL SPECIALIST 07/19/2023 4:06 PM PRODUCTION CONTROL SPECIALIST Alden John M.D. LAB BLOOD ADD-ON [facility] [address] [place] [address], [facility] [address] [place] [address] documented in this encounter Visit Diagnoses Diagnosis Nodule Thyroid Nontoxic- Primary documented in this encounter
--- OUTSIDE RECORDS SUMMARY | 2023-08-24 06:29 | XMS_ITS ---
Author Name Unknown Organization [facility] Address [address] [place] [address] Care Team Providers Care Certified Travel Counselor Name Role Phone Unavailable Unavailable Unavailable Surgery Details Not on file Complications Check Surgery Details section. Procedure Estimated Blood Loss Check Surgery Details section. Procedure Findings Check Surgery Details section. Procedure Specimens Taken Check Surgery Details section.
--- OUTSIDE RECORDS SUMMARY | 2023-08-24 06:29 | XMS_ITS | Encounter Summary ---
Author Name Unknown Organization [facility] Address [address] [place] [address] Care Team Providers Care Steel Checker Name Role Phone Unavailable Primary Care Provider Unavailabl e Reason for Visit * Reason Onset Date Comments [facility] - Outside Materials 06/25/2023 Encounter Details Date Type Department Care Team (Latest Contact Info) Description 06/25/2023 Clinical Communication Division of Endocrinology in [place], [place] [address] [place] [address] Provider, Unknown [facility] Outside [employer] Social History Tobacco Use Types Packs/Day Years Used Date Smoking Tobacco: Never Assessed [facility] Utilities Answer Date Recorded In the [...] your living situation today? I have a [facility] place to live 07/15/2023 Sex and Gender Information Value Date Recorded Sex Assigned at Female 06/07/2023 10:27 AM PHONOGRAPH MECHANIC Gender Identity Female 06/07/2023 10:27 AM PHONOGRAPH MECHANIC Sexual Orientation Straight 06/07/2023 10 :27 AM PHONOGRAPH MECHANIC documented as of this encounter Plan of Treatment Not on file documented as of this encounter Visit Diagnoses Not on filedocumented in this encounter
--- OUTSIDE RECORDS SUMMARY | 2023-08-24 06:29 | XMS_ITS | Encounter Summary ---
Author Name Unknown Organization [facility] Address [address] [place] [address] Care Team Providers Care Pin Ticket Machine Operator Name Role Phone Unavailable Primary Care Provider Unavailabl e Encounter Details Date Type Department Care Team (Latest Contact Info) Description 07/19/2023 3:16 PM SACK SEWER - 07/19/2023 11:59 PM SACK SEWER Hospital Encounter Department of Laboratory Medicine [facility] [place], [place] [address] [place] [address] Alden John M.D. [address] [place] [phone] Nodule Thyroid Nontoxic Discharge Disposition: Home or Self Care Social History Tobacco Use Types Packs/Day Years Used Date Smoking Tobacco: Never Assessed [facility] Utilities Answer Date Recorded In the past 12 months has [facility] [employer], gas, oil, or water [employer] threatened to shut off services in your [...] your living situation today? I have a [facility] place to live 07/15/2023 Sex and Gender Information Value Date Recorded Sex Assigned at Female 06/07/2023 10:27 AM SACK SEWER Gender Identity Female 06/07/2023 10:27 AM SACK SEWER Sexual Orientation Straight 06/07/2023 10 :27 AM SACK SEWER documented as of this encounter Medications at [...] (TPO) ABS, S Routine 07/19/2023 3:31 PM SACK SEWER Nodule Thyroid Nontoxic T3 (TRIIODOTHYRONINE), TOT, S Routine 07/19/2023 3:31 PM SACK SEWER Nodule Thyroid Nontoxic THYROID-STIMULATING HORMONE-SENSITIVE (S-TSH) Routine 07/19/2023 3:31 PM SACK SEWER Nodule Thyroid Nontoxic T4 (THYROXINE), FREE, S Routine 07/19/19 3:31 PM SACK SEWER Nodule Thyroid Nontoxic documented in this encounter Results * Thyroperoxidase (TPO) Antibodies (07/19/2023 3:31 PM SACK SEWER) Thyroperoxidase Ab, S <15.0 <34.0 IU/mL 07/19/2023 4:39 PM SACK SEWER DTL Blood (Blood, Venous) 07/19/2023 3:31 PM SACK SEWER 07/19/2023 4:06 PM SACK SEWER Alden N Alvaro M.D. LAB BLOOD ADD-ON Performing Organization Address City/[facility]/ZIP Co de Phone Number [facility] [address] [place] [address] * S-TSH (Thyroid-Stimulating Hormone - Sensitive) (07/19/2023 3:31 PM SACK SEWER) TSH, Sensitive 0.8 0.3 - 4.2 mIU/L 07/19/2023 4:39 PM SACK SEWER DTL Blood (Blood, Venous) 07/19/2023 3:31 PM SACK SEWER 07/19/2023 4:06 PM SACK SEWER Alden John M.D. LAB BLOOD ADD-ON Performing Organization Address [facility] Co de Phone Number [facility] [address] [place] [address] * T4 (Thyroxine), Free (07/19/2023 3:31 PM SACK SEWER) T4 (Thyroxine), Free, S 1.1 0.9 - 1.7 ng/dL 07/19/2023 4:39 PM SACK SEWER DTL Blood (Blood, Venous) 07/19/2023 3:31 PM SACK SEWER 07/19/2023 4:06 PM SACK SEWER Alden John M.D. LAB BLOOD ADD-ON Performing Organization Address City/[facility]/ZIP Co de Phone Number [facility] [address] [place] [address] * T3 (Triiodothyronine), Total (07/19/2023 3:31 PM SACK SEWER) T3 (Triiodothyroni ne), Total, S 113 80 - 200 ng/dL 07/19/2023 4:39 PM SACK SEWER DTL Blood (Blood, Venous) 07/19/2023 3:31 PM SACK SEWER 07/19/2023 4:06 PM SACK SEWER Alden John M.D. LAB BLOOD ADD-ON [facility] [address] [place] [address], [facility] DTL [facility] 200 [place] [address] documented in this encounter Visit Diagnoses Diagnosis Nodule Thyroid Nontoxic documented in this encounter
--- OUTSIDE RECORDS SUMMARY | 2023-08-24 06:29 | XMS_ITS | Referral Summary ---
Author Name Unknown Organization [facility] Address [address] [place] [address] Care Team Providers Care Service Attendant Name Role Phone Unavailable Primary Care Provider Unavailabl e Source Comments Patient records contain information from all sites at [facility]. For routine questions regarding patient records, call [phone] during business hours, M-F 8:00 AM - 5:00 PM Central Time. Record requests for emergency care only can be directed to [phone] at any time.[facility] Encounters Date Type Department Care Team Description 07/19/2023 3:16 PM TRAY FILLER - 07/19/2023 11:59 PM TRAY FILLER Hospital Encounter Department of Laboratory Medicine and Pathology, [facility], in [place], [place] [address] [place] [address] Alden John M.D. Nodule Thyroid Nontoxic Discharge Disposition: Home or Self Care 07/19/2023 2:30 PM TRAY FILLER Comprehensive Visit Division of Endocrinology in [place], [place] [address] [place] [address] Alden John M.D. Nodule Thyroid Nontoxic (Primary Dx) 06/25/2023 Clinical Communication Division of Endocrinology in [place], [place] [address] [place] [phone] Provider, Unknown [facility] - Outside Materials from [...] Date Smoking Tobacco: Never Assessed [facility] Utilities Answer Date Recorded In the past 12 months has [employer], [employer], [employer], or water [employer] threatened to shut off services in your [...] your living situation today? I have a [facility] place to live 07/15/2023 Sex and Gender Information Value Date Recorded Sex Assigned at Female 06/07/2023 10:27 AM TRAY FILLER Gender Identity Female 06/07/2023 10:27 AM TRAY FILLER Sexual Orientation Straight 06/07/2023 10 :27 AM TRAY FILLER Last Filed Vital Signs Vital Sign Reading Time Taken Comments Blood Pressure 111/78 07/19/2023 2:23 PM TRAY FILLER Pulse 80 07/19/2023 2:23 PM TRAY FILLER Temperature - - Respiratory Rate - - Oxygen Saturation - - Inhaled Oxygen Concentration - - Weight 86 kg (189 lb 9.5 oz) 07/19/2023 2:23 PM TRAY FILLER Height 175.1 cm (5' 8.94) 07/19/2023 2:23 PM CS T Body Mass Index 28.05 07/19/2023 2:23 PM TRAY FILLER Plan of Treatment Not on file Procedures Procedure Name Priority Date/Time Associated Diagnosis Comments THYROPEROXIDASE (TPO) ABS, S Routine 07/19/2023 3:31 PM TRAY FILLER Nodule Thyroid Nontoxic THYROID-STIMULATING HORMONE-SENSITIVE (S-TSH) Routine 07/19/2023 3:31 PM TRAY FILLER Nodule Thyroid Nontoxic T4 (THYROXINE), FREE, S Routine 07/19/19 3:31 PM TRAY FILLER Nodule Thyroid Nontoxic T3 (TRIIODOTHYRONINE), TOT, S Routine 07/19/2023 3:31 PM TRAY FILLER Nodule Thyroid Nontoxic OUTSIDE US BODY Routine 06/03/2023 10:55 AM TRAY FILLER OUTSIDE CT NEURO Routine 06/01/2023 12:0 5 PM TRAY FILLER from Last 3 Months Results * Thyroperoxidase (TPO) Antibodies (07/19/2023 3:31 PM TRAY FILLER) Thyroperoxidase Ab, S <15.0 <34.0 IU/mL 07/19/2023 4:39 PM TRAY FILLER DTL Blood (Blood, Venous) 07/19/2023 3:31 PM TRAY FILLER 07/19/2023 4:06 PM TRAY FILLER Alden John M.D. LAB BLOOD ADD-ON [facility] [address] [place] [address], [facility] DTL [facility] [address] [place] [address] * T3 (Triiodothyronine), Total (07/19/2023 3:31 PM TRAY FILLER) T3 (Triiodothyroni ne), Total, S 113 80 - 200 ng/dL 07/19/2023 4:39 PM TRAY FILLER DTL Blood (Blood, Venous) 07/19/2023 3:31 PM TRAY FILLER 07/19/2023 4:06 PM TRAY FILLER Alden John M.D. LAB BLOOD ADD-ON Performing Organization Address [facility] Co de Phone Number [facility] 200 [place] [address], [facility] 200 [place] [address] * S-TSH (Thyroid-Stimulating Hormone - Sensitive) (07/19/2023 3:31 PM TRAY FILLER) TSH, Sensitive 0.8 0.3 - 4.2 mIU/L 07/19/2023 4:39 PM TRAY FILLER DTL Blood (Blood, Venous) 07/19/2023 3:31 PM TRAY FILLER 07/19/2023 4:06 PM TRAY FILLER Alden John M.D. LAB BLOOD ADD-ON Performing Organization Address [facility] Co de Phone Number [facility] 200 [place], [place] [phone] [place] [address] 200 [place] [address] * T4 (Thyroxine), Free (07/19/2023 3:31 PM TRAY FILLER) T4 (Thyroxine), Free, S 1.1 0.9 - 1.7 ng/dL 07/19/2023 4:39 PM TRAY FILLER DT Blood (Blood, Venous) 07/19/2023 3:31 PM TRAY FILLER 07/19/2023 4:06 PM TRAY FILLER Alden John M.D. LAB BLOOD ADD-ON Performing Organization Address City/[facility] Co de Phone Number [facility] 200 [place], [place] [phone] [place] [address] 200 [place] [address] * US THYROID-Outside US Body (06/03/2023 10:55 AM TRAY FILLER) Narrative [facility] - 07/02/2023 1:55 PM TRAY FILLER This order has been created and auto-finalized to support the import of outside images. If available, original interpretation can be found on the Media Tab in Chart Review, in Document Viewer, or as an image in QREADS. If a re-interpretation or overread is required please follow defined workflow. ?? Provider Not In System IMG US PROCEDURES Performing Organization Address City/[facility]/ZIP Co de Phone Number [facility] NA * CT cervical spine wo con-Outside CT Neuro (06/01/2023 12:05 PM TRAY FILLER) Narrative [facility] - 07/02/2023 1:59 PM TRAY FILLER This order has been created and auto-finalized to support the import of outside images. If available, original interpretation can be found on the Media Tab in Chart Review, in Document Viewer, or as an image in QREADS. If a re-interpretation or overread is required please follow defined workflow. ?? Provider Not In System IMG CT PROCEDURES Performing Organization Address [facility] Co de Phone Number [facility] NA from Last 3 Months
--- OUTSIDE RECORDS SUMMARY | 2023-08-24 06:30 | XMS_ITS | Clinical Summary ---
Author Name Unknown Organization [facility] Address [place], [place] [address] Care Team Providers Care Sheet Rock Installer Name Role Phone Pcp, No Primary Care [...] depression, single episode 04/24/2014 Insomnia, unspecified 04/24/2014 [place] of foot 04/24/2014 Migraine, unspecified, witho ut [...] Comments Blood Pressure 110/80 05/12/2017 7:57 AM ELECTRIC PLATER Pulse 108 05/12/2017 7:57 AM ELECTRIC PLATER Temperature 36.8 ??C (98.2 ??F) 05/12/2017 7:57 AM CS T Respiratory Rate 20 05/12/2017 7:57 AM ELECTRIC PLATER Oxygen Saturation 99% 05/12/2017 7:57 AM ELECTRIC PLATER Inhaled Oxygen Concentration - - Weight 83.2 kg (183 lb 8 oz) 05/12/2017 7:57 AM ELECTRIC PLATER Height 172 cm (5' 7.72) 05/07/2017 9:12 [...] age to complete this topic Care Teams Sheet Rock Installer Relationship Specialty Start Date End Date Pcp, No . PCP - General 03/26/19
== END 2023-08-23 13:30 | disposition home or self-care (01) ==
LOC: NFLDREF 13:29
PROVIDERS: PCP Family Medicine; Referring Provider Family Medicine; Visit Provider Obstetrics & Gynecology
DX: N97.9 Female infertility, unspecified (principal)
CPT/HCPCS: 82670; 84443

== ENCOUNTER 2023-08-26 08:52 | Outpatient (CLI) | payer OTHER, SELFPAY ==
--- NOTE | 2023-08-26 09:15 | FL_ITS ---
Patient: FELIX GOMEZ Facility:?[facility] RIS Patient ID:?[id number] Site Patient ID:?[id number]. Site :?[id number] Study:?XRay-Abdomen HSG W/FLUORO-08/26/2023 10:24:25 AM Ordering Physician:? Final Report: INDICATION: Infertility. TECHNIQUE: Fluoroscopically guided hysterosalpingogram performed in conjunction with Obstetrics and Gynecology. FINDINGS: Normal-appearing uterus. Free spill of contrast from each fallopian tube. 15 seconds fluoroscopy time utilized. IMPRESSION: Normal hysterosalpingogram. Dictated by Chevy Gibson MD @ 08/26/2023 11:11:27 AM Signed by:?Chevy Gibson MD @08/26/2023 11:11:27 AM (Electronic Signature)
--- NOTE | 2023-08-26 09:46 | PM.PROC ---
Procedure Note Time Seen by Provider: 09:46 Date Seen: 08/26/23 Date of procedure: 08/26/23 Will [facility] bill your pro fee for this procedure?: Yes Procedure: DATE: Will trend 08/26/2023 PREPROCEDURE DIAGNOSIS: Infertility POSTPROCEDURE DIAGNOSIS: 1. Infertility 2. Patent fallopian tubes bilaterally. NAME OF PROCEDURE: Hysterosalpingogram. ANESTHESIA: None. COMPLICATIONS: None. PROCEDURE: After obtaining verbal consent, the patient was placed in the dorsal lithotomy position on the x-ray table. An open-sided bivalve speculum was introduced into the vagina and the cervix easily visualized. The cervix and vagina were then prepped with Betadine. The anterior lip of the cervix was grasped with a single-tooth tenaculum for traction. Os binder/cervical dilator used: Yes. A balloon tipped double-lumen catheter was then gently inserted through the cervical opening into the uterine cavity to the level of the fundus. The balloon was insufflated with 3 mL of air. The tenaculum and speculum were removed. The patient was repositioned in the supine position, covered, and the radiologist was called to the room. A hysterosalpingogram was then performed. A total of 7 cc of Optiray 300 water soluble contrast dye was injected through the double-lumen catheter under moderate pressure. There was immediate fill of the uterine cavity to the cornua and immediate fill of both fallopian tubes and free spillage of dye on both sides. The balloon was deflated. The catheter was removed. The patient tolerated the procedure well, though she did have moderate cramping discomfort during and just after the procedure. She was discharged to home in stable condition and make an appointment with her physician to review all of her lab results and procedure results.
== END 2023-08-26 08:53 | disposition home or self-care (01) ==
LOC: RAD 08:53
PROVIDERS: PCP Family Medicine; Visit Provider Obstetrics & Gynecology
DX: N97.9 Female infertility, unspecified (principal)
CPT/HCPCS: 58340; 74740; A4649; Q9967

== ENCOUNTER 2023-09-10 10:00 | Outpatient (CLI) | payer OTHER, SELFPAY | END 2023-09-10 10:01 | disposition home or self-care (01) | LOC: NFLDREF 09-24 08:36 | PROVIDERS: PCP Family Medicine; Referring Provider Family Medicine; Visit Provider Obstetrics & Gynecology | DX: N97.9 Female infertility, unspecified (principal) | CPT/HCPCS: 84144 ==

== ENCOUNTER 2024-04-20 08:10 | Outpatient (CLI) | payer OTHER, SELFPAY ==
--- OUTSIDE RECORDS SUMMARY | 2024-04-23 04:21 | XMS_ITS | Clinical Summary ---
Author Organization [facility] Address [address] [place] [address] Care Team Providers Care Nut Cracker Name Role Phone Unavailable Primary Care Provider Unavailabl e Source Comments Patient records contain information from all sites at [facility]. For routine questions regarding patient records, call [phone] during business hours, M-F 8:00 AM - 5:00 PM Central Time. Record requests for emergency care only can be directed to [phone] at any time.[facility] Allergies No known active allergies Medications * This document contains information received from the source organization and may not represent a complete record from that organization. albuterol 90 mcg/actuation inhaler Inhale 2 puffs every 4 (four) hours as needed for shortness of breath or wheezing. Active ascorbic acid, vitamin C, (VITAMIN C) 100 mg tablet Take 1 tablet by mouth daily. 3 Active buPROPion XL (WELLBUTRIN XL) 150 mg 24 hr tablet Take 150 mg by mouth every morning. 3 Active cholecalciferol (VITAMIN D3) 25 mcg (1,000 Unit) capsule Take 1 capsule by mouth daily. 3 Active cyclobenzaprine (FLEXERIL) 5 mg tablet Take 1 tablet by mouth 3 (three) times a day with meals. 3 Active hydrOXYzine (ATARAX) 25 mg tablet Take 25 mg by mouth 3 (three) times a day. Active hydrOXYzine (VISTARIL) 25 mg capsule Take 25 mg by mouth every 6 (six) hours as needed for anxiety. 3 Active ibuprofen (MOTRIN) 800 mg tablet Take 800 mg by mouth 3 (three) times a day as needed. 4 Active Ativan 1 mg tablet Take 1 mg by mouth 2 (two) times a day as needed. Active nitrofurantoin (MACRODANTIN) 100 mg capsule Take 100 mg by mouth 4 (four) times a day. 3 Active norgestrel-ethi nyl estradioL (LOW-OGESTREL,C KIMBERLYSELORRAINE) 0.3 mg-30 mcg per tablet Take 1 tablet by mouth daily. 7 Active SUMAtriptan (IMITREX) 100 mg tablet Take 100 mg by mouth every 2 (two) hours as needed. 7 Active traZODone (DESYREL) 100 mg tablet Take 100 mg by mouth at bedtime as needed. 4 Active VITAMIN B COMPLEX ORAL Take 1 tablet by mouth daily. 3 Active Social History Tobacco Use Types Packs/Day Years Used Date Smoking Tobacco: Never Assessed [facility] Utilities Answer Date Recorded In the past 12 months has th e [employer], gas, oil, or water [employer] threatened to shut off services in your [...] your living situation today? I have a [facility] place to live 07/15/2023 Comments Unknown Sex and Gender Information Value Date Recorded Sex Assigned at Female 06/07/2023 10:27 AM HOT DIP PLATING SUPERVISOR Legal Sex Female 10:24 AM HOT DIP PLATING SUPERVISOR Gender Identity Female 06/07/2023 10:27 AM HOT DIP PLATING SUPERVISOR Sexual Orientation Straight 06/07/2023 10 :27 AM HOT DIP PLATING SUPERVISOR Last Filed Vital Signs Vital Sign Reading Time Taken Comments Blood Pressure 111/78 07/19/2023 2:23 PM HOT DIP PLATING SUPERVISOR Pulse 80 07/19/2023 2:23 PM HOT DIP PLATING SUPERVISOR Temperature - - Respiratory Rate - - Oxygen Saturation - - Inhaled Oxygen Concentration - - Weight 86 kg (189 lb 9.5 oz) 07/19/2023 2:23 PM HOT DIP PLATING SUPERVISOR Height 175.1 cm (5' 8.94) 07/19/2023 2:23 PM CS T Body Mass Index 28.05 07/19/2023 2:23 PM HOT DIP PLATING SUPERVISOR Plan of Treatment Health Maintenance Due Date Last Done Comments Cervical Cancer Screening 1992 HIV Screening 1990 Hepatitis C Screening 1992 Depression Screening (Annual PHQ-2) 07/05/2023 COVID-19 Vaccine ( season) 2024 04/02/2021, 03/12/2021 Influenza Vaccine (#1) 2024 , 05/22/2022, 03/27/2021, Additional history exists DTaP,Tdap,and Td Vaccines (4 - Td or Tdap) 04/20/2033 04/20/2023, 08/09/2012, 02/05/2005 Hepatitis B Vaccines Completed 09/04/2005, 03/30/2005, 02/26/2005 HPV Vaccines Completed 12/30/2012, 12/04, 08/09/2012, Additional history exists Pneumococcal vaccine (0-64 years) Aged Out No longer eligible based on patient's age to complete this topic Insurance [facility]
--- OUTSIDE RECORDS SUMMARY | 2024-04-23 04:21 | XMS_ITS ---
Author Organization [facility] Address [address] [place] [address] Care Team Providers Care Instant Powder Supervisor Name Role Phone Unavailable Unavailable Unavailable Surgery Details Not on file Complications Check Surgery Details section. Procedure Estimated Blood Loss Check Surgery Details section. Procedure Findings Check Surgery Details section. Procedure Specimens Taken Check Surgery Details section.
--- OUTSIDE RECORDS SUMMARY | 2024-04-23 04:21 | XMS_ITS | Referral Summary ---
Author Organization [facility] Address [address] [place] [address] Care Team Providers Care Grinding Wheel Dresser Name Role Phone Unavailable Primary Care Provider Unavailabl e Source Comments Patient records contain information from all sites at [facility]. For routine questions regarding patient records, call [phone] during business hours, M-F 8:00 AM - 5:00 PM Central Time. Record requests for emergency care only can be directed to [phone] at any time.[facility] Allergies No known active allergies Medications * [...] Years Used Date Smoking Tobacco: Never Assessed [facility] Utilities Answer Date Recorded In the past 12 months has th e [employer], gas, oil, or water [employer] threatened to shut off services in your [...] your living situation today? I have a [facility] place to live 07/15/2023 Comments Unknown Sex and Gender Information Value Date Recorded Sex Assigned at Female 06/07/2023 10:27 AM PRINT PRODUCTION MANAGER Legal Sex Female 10:24 AM PRINT PRODUCTION MANAGER Gender Identity Female 06/07/2023 10:27 AM PRINT PRODUCTION MANAGER Sexual Orientation Straight 06/07/2023 10 :27 AM PRINT PRODUCTION MANAGER Last Filed Vital Signs Vital Sign Reading Time Taken Comments Blood Pressure 111/78 07/19/2023 2:23 PM PRINT PRODUCTION MANAGER Pulse 80 07/19/2023 2:23 PM PRINT PRODUCTION MANAGER Temperature - - Respiratory Rate - - Oxygen Saturation - - Inhaled Oxygen Concentration - - Weight 86 kg (189 lb 9.5 oz) 07/19/2023 2:23 PM PRINT PRODUCTION MANAGER Height 175.1 cm (5' 8.94) 07/19/2023 2:23 PM CS T Body Mass Index 28.05 07/19/2023 2:23 PM PRINT PRODUCTION MANAGER Plan of Treatment Not on file Insurance [employer]
--- OUTSIDE RECORDS SUMMARY | 2024-04-23 04:21 | XMS_ITS | Clinical Summary ---
Author Organization [facility] Address [place], [place] [address] Care Team Providers Care Coil Winding Supervisor Name Role Phone Pcp, No Primary Care [...] 0 05/01/2014 Active albuterol HFA 90 mcg/actuation inhalerIndications:[place] ctive airway disease, mild intermittent, uncomplicated Inhale [...] depression, single episode 04/24/2014 Insomnia, unspecified 04/24/2014 [place] of foot 04/24/2014 Migraine, unspecified, witho ut mention of intractable migraine without mention of status migrainosus 08/28/2008 Resolved Problems Problem Noted Date Diagnosed Date Resolved Date Surveillance of previously p rescribed intrauterine contraceptive device 05/08/20142014 Overview (05/08/2014): Mirena placed 05/08/2014. Controlled substance agreement signed [...] Comments Blood Pressure 110/80 05/12/2017 7:57 AM SASH CLAMP OPERATOR Pulse 108 05/12/2017 7:57 AM SASH CLAMP OPERATOR Temperature 36.8 ??C (98.2 ??F) 05/12/2017 7:57 AM CS T Respiratory Rate 20 05/12/2017 7:57 AM SASH CLAMP OPERATOR Oxygen Saturation 99% 05/12/2017 7:57 AM SASH CLAMP OPERATOR Inhaled Oxygen Concentration - - Weight 83.2 kg (183 lb 8 oz) 05/12/2017 7:57 AM SASH CLAMP OPERATOR Height 172 cm (5' 7.72) 05/07/2017 9:12 AM CDT Body Mass Index 28.13 05/07/2017 9:12 AM CDT Plan of Treatment Health Maintenance Due Date Last Done Comments Hepatitis C screening for age 18-79 01/08/2010 BMI (ht and wt on same day) for age 18+ 05/07/2018 05/07/2017, 01/26/2017, 01/25/2017, Additional history exists Depression screening for age 12+ 05/07/2018 05/07/2017, 04/13/2016 Tetanus booster 08/09/2022 08/09/2012 Pap test for age 21-65 03/25/2023 03/25/2020, 2012 COVID-19 vaccine series (2023- season) 2024 Influenza for age 9-49 03/05/2024 05/03/2014, 2013 Tdap Completed 08/09/2012 HIV for age 15-65 Completed 02/03/2013 Pneumococcal series for age 6-64 Aged Out No longer eligible based on patient's age to complete this topic Procedures Procedure Name Priority Date/Time Associated Diagnosis Comments FIELD SUPPORT REPRESENTATIVE THIN PREP PAP SCREEN IMAGED Routine 03/25/2020 12:00 PM CDT ANTI HIV 1/2 Routine 02/03/2013 4:29 PM CDT Hematuria from Last 3 Months or Most Recently Relevant to Health Maintenance Results * FIELD SUPPORT REPRESENTATIVE THIN PREP PAP SCREEN IMAGED (03/25/2020 12:00 PM CDT) Case Report Gynecologic Cytology Report ? Case: [id number] ? Authorizing Provider: ??Deven Boyer MD ?Collected: ? 03/25/2020 1200 ? Ordering Location: ? [facility] ?Received: ?03/27/2020 0933 ? First Screen: ?Yasmani Coon ? Pathologist: ? Guero Akins Jr., ? MD ? Specimen: ?FIELD SUPPORT REPRESENTATIVE ThinPrep Vial Screening, Cervical/Vaginal ? 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, [place] [address] Automated Review Successful 04/03/2020 10:42 AM CDT [facility] Comment:Specimen processed s uccessfully by automated bow rehairer device, ThinPrep Imaging System, [employer] Note The pap test is a screening technique, not a diagnostic procedure. It is used primarily to screen for squamous cancers and precursor lesions. Published studies have shown that it is subject to both false negative and false positive results. The pap test should not be used as the sole means to diagnose or exclude pre-malignant and malignant lesions. 04/03/2020 10:42 AM CDT [facility] Other (Cervical/Vagina l) 03/25/2020 12:00 PM CDT 03/27/2020 9:33 AM CDT Deven Boyer MD PATHOLOGY/CYTOLOGY [facility] [address] [place] [address], * ANTI HIV 1/2 (02/03/2013 4:29 PM CDT) ANTI HIV 1/2 Non-reacti ve [facility] Blood specimen (specimen) BLOOD SPECIMEN / Unknown 02/03/2013 4:29 PM CDT 02/03/2013 4:23 PM CDT Jermaine Burton MD SEND OUTS [facility] [place]NAL ZIP [id number] [place] [address] from Last 3 Months or Most Recently Relevant to Health Maintenance Care Teams Coil Winding Supervisor Relationship Specialty Start Date End Date Pcp, No . PCP - General 03/26/19
== END 2024-04-20 08:11 | disposition home or self-care (01) ==
LOC: NFLDREF 04-23 04:20
PROVIDERS: PCP Family Medicine; Referring Provider Family Medicine; Visit Provider Family Medicine
DX: Z13.1 Encounter for screening for diabetes mellitus (principal); Z13.6 Encounter for screening for cardiovascular disorders
CPT/HCPCS: 80061; 82947

== ENCOUNTER 2024-06-05 10:50 | Outpatient (CLI) | payer OTHER, SELFPAY ==
--- NOTE | 2024-06-05 10:45 | CRLHL7_ITS ---
For Patients: As a result of the Cures Act, medical imaging exams and procedure reports are released immediately into your electronic medical record. You may view this report before your referring provider. If you have questions, please contact your health care provider. INDICATION: Non-toxic thyroid nodules- eval for changes COMPARISON: 06/03/2023 TECHNIQUE: Hastings scale and color Doppler images were acquired of the thyroid gland. FINDINGS: Solid and cystic nodule left thyroid lobe measures 1.1 x 1.2 x 0.8 cm, TR 3, previously measuring 1.3 x 0.9 x 1.1 cm. Cystic nodule left thyroid lobe measures 6 x 9 x 3 millimeters, previously measuring 8 x 3 x 7 millimeters, TR 1. Isthmus measures 2.5 millimeters. Solid and cystic nodule right thyroid lobe measures 6 x 7 x 3 millimeters, TR 3, previously measuring 6 x 4 x 5 millimeters. The right lobe measures 4.4 x 1.3 x 1.8 cm and the left lobe measures 4.9 x 1.2 x 2.0 cm in size. The color Doppler images demonstrate normal vascularity. There is no evidence of cervical lymphadenopathy or parathyroid mass. IMPRESSION: Similar bilateral thyroid nodules. No further follow-up indicated. Dictated by David Dumont MD @ 06/05/2024 2:47:17 PM (Electronically Signed)
--- OUTSIDE RECORDS SUMMARY | 2024-06-05 10:52 | XMS_ITS | Clinical Summary ---
Author Organization [facility] Address [place], [place] [address] Care Team Providers Care Long Chain Quiller Tender Name Role Phone Pcp, No Primary Care [...] 0 05/01/2014 Active albuterol HFA 90 mcg/actuation inhalerIndications:[place] ctive airway disease, mild intermittent, uncomplicated Inhale [...] depression, single episode 04/24/2014 Insomnia, unspecified 04/24/2014 [place] of foot 04/24/2014 Migraine, unspecified, witho ut [...] Comments Blood Pressure 110/80 05/12/2017 7:57 AM ROBOTICS TESTING TECHNICIAN Pulse 108 05/12/2017 7:57 AM ROBOTICS TESTING TECHNICIAN Temperature 36.8 C (98.2 F) 05/12/2017 7:57 AM ROBOTICS TESTING TECHNICIAN Respiratory Rate 20 05/12/2017 7:57 AM ROBOTICS TESTING TECHNICIAN Oxygen Saturation 99% 05/12/2017 7:57 AM ROBOTICS TESTING TECHNICIAN Inhaled Oxygen Concentration - - Weight 83.2 kg (183 lb 8 oz) 05/12/2017 7:57 AM ROBOTICS TESTING TECHNICIAN Height 172 cm (5' 7.72) 05/07/2017 9:12 [...] Procedure Name Priority Date/Time Associated Diagnosis Comments TOLL REPAIRER CENTRAL OFFICE THIN PREP PAP SCREEN IMAGED Routine 03/25/2020 12:00 PM CDT ANTI HIV 1/2 Routine 02/03/2013 4:29 PM CDT Hematuria from Last 3 Months or Most Recently Relevant to Health Maintenance Results * TOLL REPAIRER CENTRAL OFFICE THIN PREP PAP SCREEN IMAGED (03/25/2020 12:00 PM CDT) Case Report Gynecologic Cytology Report Case: [id number] Authorizing Provider: Deven Boyer MD Collected: 03/25/2020 1200 Ordering Location: [facility] Received: 03/27/2020 0933 First Screen: Yasmani Coon Pathologist: Guero Akins Jr., MD Specimen: TOLL REPAIRER CENTRAL OFFICE ThinPrep Vial Screening, Cervical/Vaginal 04/03/2020 10:42 AM CDT [email or web address] INTERPRETATION/ RESULT NEGATIVE FOR INTRAEPITHELIAL LESION OR MALIGNANCY (NIL) (none) 04/03/2020 10:42 AM CDT [facility] R NON-NEOPLASTIC FINDING(S) Parakeratosis 04/03/2020 10:42 AM CDT [facility] ORGANISM(S) Fungal organisms morphologically consistent with Maglay species 04/03/2020 10:42 AM CDT [facility] SPECIMEN ADEQUACY Satisfactory for evaluation Endocervical component present 04/03/2020 10:42 AM CDT [facility] HPV REQUEST HPV if ASCUS 04/03/2020 10:42 AM CDT [facility] Date of LMP 03/03/2020 04/03/2020 10:42 AM CDT [facility] Additional Information 04/03/2020 10:42 AM CDT [facility] Comment: Interpreted at [facility] - [address], [place] [address] Automated Review Successful 04/03/2020 10:42 AM CDT [facility] Comment:Specimen processed s uccessfully by automated facilities locator device, ThinPrep Imaging System, [employer] Note The pap test is a [...] and malignant lesions. 04/03/2020 10:[address] [facility] Other (Cervical/Vagina l) 03/25/2020 12:00 PM CDT 03/27/2020 9:33 AM CDT Deven Boyer MD PATHOLOGY/CYTOLOGY [facility] [address] [place] [address], [place] * ANTI HIV 1/2 (02/03/2013 4:29 PM CDT) ANTI HIV 1/2 Non-reacti ve [facility] Blood specimen (specimen) BLOOD SPECIMEN / Unknown 02/03/2013 4:29 PM CDT 02/03/2013 4:23 PM CDT Jermaine Burton MD SEND OUTS [facility] [place]NAL ZIP [id number] [place] [address] from Last 3 Months or Most Recently Relevant to Health Maintenance Care Teams Long Chain Quiller Tender Relationship Specialty Start Date End Date Pcp, No . PCP - General 03/26/19
--- OUTSIDE RECORDS SUMMARY | 2024-06-05 10:52 | XMS_ITS | Referral Summary ---
Author Organization [facility] Address [address] [place] [address] Care Team Providers Care Permit Specialist Name Role Phone Unavailable Primary Care Provider Unavailabl e Source Comments Patient records contain information from all sites at [facility]. For routine questions regarding patient records, call [phone] during business hours, M-F 8:00 AM - 5:00 PM Central Time. Record requests for emergency care only can be directed to [phone] at any time.[facility] Allergies No known active allergies [...] day. 3 Active norgestrel-ethi nyl estradioL (LOW-OGESTREL,C KIMBERYLSELORRAINE) 0.3 mg-30 mcg per tablet Take 1 [...] Years Used Date Smoking Tobacco: Never Assessed [facility] Utilities Answer Date Recorded In the past 12 months has th e [employer], gas, oil, or water [employer] threatened to shut off services in your [...] your living situation today? I have a [facility] place to live 07/15/2023 Comments Unknown Sex and Gender Information Value Date Recorded Sex Assigned at Female 06/07/2023 10:27 AM ELECTRONICS ASSEMBLER Legal Sex Female 10:24 AM ELECTRONICS ASSEMBLER Gender Identity Female 06/07/2023 10:27 AM ELECTRONICS ASSEMBLER Sexual Orientation Straight 06/07/2023 10 :27 AM ELECTRONICS ASSEMBLER Last Filed Vital Signs Vital Sign Reading Time Taken Comments Blood Pressure 111/78 07/19/2023 2:23 PM ELECTRONICS ASSEMBLER Pulse 80 07/19/2023 2:23 PM ELECTRONICS ASSEMBLER Temperature - - Respiratory Rate - - Oxygen Saturation - - Inhaled Oxygen Concentration - - Weight 86 kg (189 lb 9.5 oz) 07/19/2023 2:23 PM ELECTRONICS ASSEMBLER Height 175.1 cm (5' 8.94) 07/19/2023 2:23 PM CS T Body Mass Index 28.05 07/19/2023 2:23 PM ELECTRONICS ASSEMBLER Plan of Treatment Not on file Insurance [employer]
--- OUTSIDE RECORDS SUMMARY | 2024-06-05 10:52 | XMS_ITS | Clinical Summary ---
Author Organization [facility] Address [address] [place] [address] Care Team Providers Care Mix Maker Name Role Phone Unavailable Primary Care Provider Unavailabl e Source Comments Patient records contain information from all sites at [facility]. For routine questions regarding patient records, call [phone] during business hours, M-F 8:00 AM - 5:00 PM Central Time. Record requests for emergency care only can be directed to [phone] at any time.[facility] Allergies No known active allergies Medications * [...] Years Used Date Smoking Tobacco: Never Assessed [facility] Utilities Answer Date Recorded In the past 12 months has th e [employer], gas, oil, or water [employer] threatened to shut off services in your [...] your living situation today? I have a [facility] place to live 07/15/2023 Comments Unknown Sex and Gender Information Value Date Recorded Sex Assigned at Female 06/07/2023 10:27 AM MANPOWER DEVELOPMENT MANAGER Legal Sex Female 10:24 AM MANPOWER DEVELOPMENT MANAGER Gender Identity Female 06/07/2023 10:27 AM MANPOWER DEVELOPMENT MANAGER Sexual Orientation Straight 06/07/2023 10 :27 AM MANPOWER DEVELOPMENT MANAGER Last Filed Vital Signs Vital Sign Reading Time Taken Comments Blood Pressure 111/78 07/19/2023 2:23 PM MANPOWER DEVELOPMENT MANAGER Pulse 80 07/19/2023 2:23 PM MANPOWER DEVELOPMENT MANAGER Temperature - - Respiratory Rate - - Oxygen Saturation - - Inhaled Oxygen Concentration - - Weight 86 kg (189 lb 9.5 oz) 07/19/2023 2:23 PM MANPOWER DEVELOPMENT MANAGER Height 175.1 cm (5' 8.94) 07/19/2023 2:23 PM CS T Body Mass Index 28.05 07/19/2023 2:23 PM MANPOWER DEVELOPMENT MANAGER Plan of Treatment Health Maintenance Due Date Last Done Comments Cervical/Vaginal Cancer Screening 1992 HIV Screening 1992 Hepatitis C Screening 1992 Depression Screening (Annual PHQ-2) 07/05/2023 COVID-19 Vaccine ( season) 2024 04/02/2021, 03/12/2021 Influenza Vaccine (#1) 2024 , 05/22/2022, 03/27/2021, Additional history exists DTaP,Tdap,and Td Vaccines (4 - Td or Tdap) 04/20/2033 04/20/2023, 08/09/2012, 02/05/2005 Hepatitis B Vaccines Completed 09/04/2005, 03/30/2005, 02/26/2005 HPV Vaccines Completed 12/30/2012, 0602/2013, 08/09/2012, Additional history exists IPV Vaccines Aged Out No longer eligi ble based on patient's age to complete this topic Pneumococcal vaccine (0-64 years) Aged Out No longer eligible based on patient's age to complete this topic Insurance [facility]
--- OUTSIDE RECORDS SUMMARY | 2024-06-05 10:52 | XMS_ITS ---
Author Organization [facility] Address [address] [place] [address] Care Team Providers Care Supervisor Intelligence Analyst Name Role Phone Unavailable Unavailable Unavailable Surgery Details Not on file Complications Check Surgery Details section. Procedure Estimated Blood Loss Check Surgery Details section. Procedure Findings Check Surgery Details section. Procedure Specimens Taken Check Surgery Details section.
== END 2024-06-05 10:51 | disposition home or self-care (01) ==
PROVIDERS: PCP Family Medicine; Visit Provider Family Medicine
DX: E04.1 Nontoxic single thyroid nodule (principal)
CPT/HCPCS: 76536

== ENCOUNTER 2024-09-19 15:46 | Outpatient (CLI) | payer BC, SELFPAY | END 2024-09-19 15:47 | disposition home or self-care (01) | LOC: NFLDUCREF 15:47 | PROVIDERS: PCP Family Medicine; Visit Provider Nurse Practitioner Family | DX: N39.0 Urinary tract infection, site not specified (principal); R11.2 Nausea with vomiting, unspecified; K52.9 Noninfective gastroenteritis and colitis, unspecified | CPT/HCPCS: 87086 ==

== ENCOUNTER 2024-09-27 13:41 | Outpatient (CLI) | payer BC, SELFPAY | END 2024-09-27 13:42 | disposition home or self-care (01) | PROVIDERS: PCP Family Medicine; Visit Provider Nurse Practitioner | DX: R10.11 Right upper quadrant pain (principal); R11.2 Nausea with vomiting, unspecified | CPT/HCPCS: 80053; 83690; 87086 ==

== ENCOUNTER 2024-09-27 15:00 | Emergency (ER) | payer BC, SELFPAY ==
--- OUTSIDE RECORDS SUMMARY | 2024-09-27 15:02 | XMS_ITS | Clinical Summary ---
Author Organization [facility] Address [address] [place] [address] Care Team Providers Care Business Support Associate Name Role Phone Unavailable Primary Care Provider Unavailabl e Source Comments Patient records contain information from all sites at [facility]. For routine questions regarding patient records, call [phone] during business hours, M-F 8:00 AM - 5:00 PM Central Time. Record requests for emergency care only can be directed to [phone] at any time.[facility] Allergies No known active allergies Medications [...] Years Used Date Smoking Tobacco: Never Assessed [facility] Utilities Answer Date Recorded In the past 12 months has th e [employer], gas, oil, or water [employer] threatened to shut off services in your [...] your living situation today? I have a [facility] place to live 07/15/2023 Comments Unknown Sex and Gender Information Value Date Recorded Sex Assigned at Female 06/07/2023 10:27 AM GIS PROFESSOR Legal Sex Female 10:24 AM GIS PROFESSOR Gender Identity Female 06/07/2023 10:27 AM GIS PROFESSOR Sexual Orientation Straight 06/07/2023 10 :27 AM GIS PROFESSOR Last Filed Vital Signs Vital Sign Reading Time Taken Comments Blood Pressure 111/78 07/19/2023 2:23 PM GIS PROFESSOR Pulse 80 07/19/2023 2:23 PM GIS PROFESSOR Temperature - - Respiratory Rate - - Oxygen Saturation - - Inhaled Oxygen Concentration - - Weight 86 kg (189 lb 9.5 oz) 07/19/2023 2:23 PM GIS PROFESSOR Height 175.1 cm (5' 8.94) 07/19/2023 2:23 PM CS T Body Mass Index 28.05 07/19/2023 2:23 PM GIS PROFESSOR Plan of Treatment Health Maintenance Due Date Last Done Comments Cervical/Vaginal Cancer Screening 1992 HIV Screening 1992 Hepatitis C Screening 1992 COVID-19 Vaccine ( season) 2024 04/02/2021, 03/12/2021 Influenza Vaccine (#1) 2024 , 05/22/2022, 03/27/2021, Additional history exists Depression Screening (Annual PHQ-2) 07/05/2024 DTaP,Tdap,and Td Vaccines (4 - Td or Tdap) 04/20/2033 04/20/2023, 08/09/2012, 02/05/2005 Hepatitis B Vaccines Completed 09/04/2005, 03/30/2005, 02/26/2005 HPV Vaccines Completed 12/30/2012, 06/02/2013, 08/09/2012, Additional history exists IPV Vaccines Aged Out No longer eligi ble based on patient's age to complete this topic Pneumococcal vaccine (0-49 years) Aged Out No longer eligible based on patient's age to complete this topic Insurance [facility]
[2024-09-27 15:07] VITALS: BP 106/74; PULSE 92; RESP 18; TEMP 37.1; O2SAT 97; BMI 24.5
--- NOTE | 2024-09-27 15:32 | CRLHL7_ITS ---
For Patients: As a result of the Century Cures Act, medical imaging exams and procedure reports are released immediately into your electronic medical record. You may view this report before your referring provider. If you have questions, please contact your health care provider. INDICATION: Right flank pain TECHNIQUE: Axial images were obtained from the diaphragm to the pubic symphysis. Reformats were obtained in the coronal and sagittal plane. IV Contrast: None Oral Contrast: None COMPARISON: None. FINDINGS: Lower chest: Unremarkable. Liver: Unremarkable. Normal in size and attenuation. No masses. Gallbladder and bile ducts: Unremarkable. No stones or inflammation. No biliary dilatation. Spleen: Unremarkable. Normal in size without mass. Pancreas: Unremarkable. No mass or inflammation. Adrenal glands: Unremarkable. No nodules. Kidneys: Unremarkable. No masses, stones, or hydronephrosis. Vasculature: Unremarkable. GI tract: The stomach is unremarkable. No dilated loops of large or small intestine. Appendix normal in caliber with small appendiceal stone. Pelvis: Left ovarian low-density lesion measuring 2.0 centimeters with small free fluid in the pelvic cul-de-sac. Bladder unremarkable. Bones: Degenerative disc disease L5-S1 IMPRESSION: 1. No evidence of nephrolithiasis or hydronephrosis. 2. No dilated bowel or localized inflammation. 3. Left ovarian low-density lesion measuring 2.0 centimeters, presumed ovarian cyst, with small free fluid in the cul de sac. Please note that all CT scans at this facility use dose modulation, iterative reconstruction, and/or weight-based dosing when appropriate to reduce radiation dose to as low as reasonably achievable. Dictated by Jermaine Torres MD @ 09/27/2024 4:17:03 PM (Electronically Signed)
--- NOTE | 2024-09-27 15:35 | CRLHL7_ITS ---
For Patients: As a result of the Century Cures Act, medical imaging exams and procedure reports are released immediately into your electronic medical record. You may view this report before your referring provider. If you have questions, please contact your health care provider. INDICATION: Right upper quadrant pain COMPARISON: Same day CT of the abdomen/pelvis TECHNIQUE: Sonographic evaluation of the right upper abdominal quadrant was performed utilizing adorno-scale and color/spectral Doppler imaging techniques. FINDINGS: Visualized portion of the pancreas is unremarkable. Normal hepatic echogenicity. Liver measures 13.5 centimeters. Main portal vein measures 1.1 centimeters in diameter. Hepatopetal flow within the main portal vein. Main portal vein velocity measuring 51.2 centimeters/second. Negative sonographic Sage`s sign. No gallbladder wall thickening. No cholelithiasis. Common bile duct measures 3 millimeters. Right kidney measures 11.4 centimeters. No right hydronephrosis. IMPRESSION: Mildly elevated main portal vein velocity measuring 51.2 centimeters/second which is of uncertain clinical significance. Otherwise, unremarkable sonographic appearance of the right upper abdominal quadrant. Dictated by Jadon Steward MD @ 09/27/2024 4:54:26 PM (Electronically Signed)
--- NOTE | 2024-09-27 15:37 | ED_ITS ---
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 She has noticed no hematuria. She has had some right upper quadrant and right lower quadrant pain. She was seen by urgent care couple of times has an elevated white count about 12,000 now. She has a positive UA with 20-25 white cells per high-powered field. She has not been on antibiotics this point. She got some Phenergan and IV fluid in Urgent Care had an IV started there and presents to the ER. [place] [address], ER profile and liver function tests within normal limits. Patient reports also she had some diarrhea early in the illness some Dr. Hyatt. She feels real dehydrated, has not eaten much. She reports that she has got more right posterior flank pain now. No rigors, although she did report night sweats a couple nights ago. She has had no marked dysuria has had 1 prior urinary tract infection. <Michael Deras MD - Last Filed: 09/27/24 15:44> Related Data Home medications: Home Medications ?Medication ?Instructions ?Recorded ?Confirmed magnesium gluconate 12.5 mg 250 mg PO BID 04/24/24 09/27/24 magnesium (250 mg) tablet riboflavin (vitamin B2) 100 mg 200 mg PO BID 04/24/24 09/27/24 tablet Previous Rx's ?Medication ?Instructions ?Recorded albuterol sulfate 90 mcg/actuation 2 puff inhalation Q4-6H PRN 04/24/24 aerosol inhaler shortness of breath or wheezing #6.7 grams hydroxyzine pamoate 25 mg capsule 25 mg PO Q6H PRN anxiety #30 caps 04/24/24 lorazepam 1 mg tablet 1 mg PO BID PRN anxiety #10 tabs 04/24/24 ondansetron 4 mg disintegrating 4 - 8 mg (1 - 2 x 4 mg) PO Q6H PRN 09/19/24 tablet nausea and vomiting #20 tabs sumatriptan succinate 100 mg tablet 100 mg PO ONCE PRN migraine 09/19/24 headache #9 tabs metoclopramide HCl 10 mg tablet 10 mg PO Q6H PRN nausea and 09/27/24 vomiting #20 tabs sulfamethoxazole 800 1 tab PO BID 7 days #14 tabs 09/27/24 mg-trimethoprim 160 mg tablet <Michael Deras MD - Last Filed: 09/27/24 15:44> Allergies/adverse reactions: Allergies Allergy/AdvReac Type Severity Reaction Status Date / Time nickel Allergy Mild Rash Verified 09/27/24 12:57 LAUNDRY SOAP Allergy Intermediate Rash Uncoded 09/27/24 12:57 <Michael Deras MD - Last Filed: 09/27/24 15:44> Review of Systems Status of ROS: Reports: 6 or more systems reviewed and unremarkable except as noted in History and below <Michael Deras MD - Last Filed: 09/27/24 15:44> [facility] Medical History: Medical History Headache ?R51.9 - Headache, unspecified (ICD-10) <Michael Deras MD - Last Filed: 09/27/24 15:44> Family History: Family History Aunt Breast cancer Maternal Grandmother Coronary artery disease Ovarian cancer Father Thyroid cancer <Michael Deras MD - Last Filed: 09/27/24 15:44> Social History: Social History Narrative: Former smoker Does not use illicit drugs Does not drink alcohol What is your current living situation?: I presently have a place to live Problems where you live: no known problems In the past 12 months, utilities in danger of being shut off: no In past 12 months, lack of transportation kept you from medical appts, meetings, work, or getting things needed for daily living: no In the past 12 mos, have been you worried that your food would run out before you had money to buy more?: never true In the past 12 mos, the food you bought just didn't last and you didn't have money to buy more?: never true Smoking Status: Never smoker How often do you have a drink containing alcohol: monthly or less AUDIT-C Alcohol total score: 1 Non-prescribed substance use: denies use How often does anyone, including family, friends and others, physically hurt you : never How often does anyone, including family, friends and others, insult or talk down to you: never How often does anyone, including family, friends and others, threaten you with harm: never How often does anyone, including family, friends and others, scream or curse at you: never <Michael Deras MD - Last Filed: 09/27/24 15:44> Exam Narrative: Exam Narrative: Objective: Vital signs are within normal limits, afebrile In general patient is in no marked distress but states she does not feel well HEENT unremarkable except force significantly dry mouth. Pulse regular Abdomen is soft benign nontender except for the mild right upper quadrant and epigastric tenderness, there is some mild right suprapubic discomfort as well Extremities normal neurologic nonfocal <Michael Deras MD - Last Filed: 09/27/24 15:44> Const: Vital Signs, click to edit/add: Vital Signs - 24 hr 09/27/24 15:07 09/27/24 16:31 Temperature 98.8 F Pulse Rate 62 Pulse Rate [Pulse Oximeter] 92 Respiratory Rate 18 16 Blood Pressure 103/71 Blood Pressure [Ri ght Upper Arm] 106/74 Pulse Oximetry 97 99 Oxygen Delivery Me thod Room Air Room Air <Michael Deras MD - Last Filed: 09/27/24 15:44> Vital Signs, click to edit/add: Vital Signs - 24 hr 09/27/24 15:07 09/27/24 16:31 Temperature 98.8 F Pulse Rate 62 Pulse Rate [Pulse Oximeter] 92 Respiratory Rate 18 16 Blood Pressure 103/71 Blood Pressure [Ri ght Upper Arm] 106/74 Pulse Oximetry 97 99 Oxygen Delivery Me thod Room Air Room Air <Cruz Cool DO - Last Filed: 09/27/24 17:54> Course Vital Signs Vital signs: Initial Vital Signs Temperature 98.8 F 09/27/24 15:07 Temperature Source Temporal Artery Scan 09/27/24 15:07 Pulse Rate 92 09/27/24 15:07 Respiratory Rate 18 09/27/24 15:07 Blood Pressure 106/74 09/27/24 15:07 Blood Pressure Mean 84 09/27/24 15:07 Blood Pressure Position Sitting 09/27/24 15:07 Pulse Oximetry 97 09/27/24 15:07 Oxygen Delivery Method Room Air 09/27/24 15:07 Vital Signs Temperature 98.8 F 09/27/24 15:07 Pulse Rate 92 09/27/24 15:07 Respiratory Rate 18 09/27/24 15:07 Blood Pressure 106/74 09/27/24 15:07 Pulse Oximetry 97 09/27/24 15:07 Oxygen Delivery Method Room Air 09/27/24 15:07 Temperature 98.8 F 09/27/24 15:07 Pulse Rate 62 09/27/24 16:31 Respiratory Rate 16 09/27/24 16:31 Blood Pressure 103/71 09/27/24 16:31 Pulse Oximetry 99 09/27/24 16:31 Oxygen Delivery Method Room Air 09/27/24 16:31 <Michael Deras MD - Last Filed: 09/27/24 15:44> Initial Vital Signs Temperature 98.8 F 09/27/24 15:07 Temperature Source Temporal Artery Scan 09/27/24 15:07 Pulse Rate 92 09/27/24 15:07 Respiratory Rate 18 09/27/24 15:07 Blood Pressure 106/74 09/27/24 15:07 Blood Pressure Mean 84 09/27/24 15:07 Blood Pressure Position Sitting 09/27/24 15:07 Pulse Oximetry 97 09/27/24 15:07 Oxygen Delivery Method Room Air 09/27/24 15:07 Vital Signs Temperature 98.8 F 09/27/24 15:07 Pulse Rate 92 09/27/24 15:07 Respiratory Rate 18 09/27/24 15:07 Blood Pressure 106/74 09/27/24 15:07 Pulse Oximetry 97 09/27/24 15:07 Oxygen Delivery Method Room Air 09/27/24 15:07 Temperature 98.8 F 09/27/24 15:07 Pulse Rate 62 09/27/24 16:31 Respiratory Rate 16 09/27/24 16:31 Blood Pressure 103/71 03/26/25 16:31 Pulse Oximetry 99 09/27/24 16:31 Oxygen Delivery Method Room Air 09/27/24 16:31 <Cruz Cool DO - Last Filed: 09/27/24 17:54> Medications Administered Medications: Discontinued Medications Generic Name Dose Route Start Last Admin Trade Name Freq PRN Reason Stop Dose Admin Sodium Chloride 1,000 mls @ 6,000 mls/hr 09/27/24 15:45 09/27/24 16:26 0.9 % Sodium Chloride 1000 Ml IV 09/27/24 15:54 Infused .Q10M GALEN Infusion Ceftriaxone Sodium 1 gm/ 100 mls @ 200 mls/hr 09/27/24 15:35 09/27/24 17:08 Sodium Chloride IVPB 09/27/24 15:36 Infused ONCE ONE Infusion Ketorolac Tromethamine 15 mg 09/27/24 15:37 09/27/24 15:56 Ketorolac 15 Mg/Ml Inj IVP 09/27/24 15:38 15 mg ONCE ONE Administration <Michael Deras MD - Last Filed: 09/27/24 15:44> Discontinued Medications Generic Name Dose Route Start Last Admin Trade Name Freq PRN Reason Stop Dose Admin Sodium Chloride 1,000 mls @ 6,000 mls/hr 09/27/24 15:45 09/27/24 16:26 0.9 % Sodium Chloride 1000 Ml IV 09/27/24 15:54 Infused .Q10M GALEN Infusion Ceftriaxone Sodium 1 gm/ 100 mls @ 200 mls/hr 09/27/24 15:35 09/27/24 17:08 Sodium Chloride IVPB 09/27/24 15:36 Infused ONCE ONE Infusion Ketorolac Tromethamine 15 mg 09/27/24 15:37 09/27/24 15:56 Ketorolac 15 Mg/Ml Inj IVP 09/27/24 15:38 15 mg ONCE ONE Administration <Cruz Cool DO - Last Filed: 09/27/24 17:54> Medical Decision Making MDM Narrative Medical decision making narrative: [age] year white female with history of not feeling well for over a week with nausea vomiting brief diarrhea, now with positive urinalysis. The patient has felt very dehydrated, has right flank pain consistent with pyelonephritis. She has mild palpable tenderness to her right flank. I think at this point given the duration of her illness, I think it be reasonable to get a CT scan to rule out perhaps an infected kidney stone or a kidney stone given her right flank pain. Will do a CT of her abdomen pelvis unenhanced. She had a negative test today. Her white count was slightly elevated. Will give her IV Rocephin now. She got Phenergan and fluid and does not feel na useated but will give her an additional L of fluid. Change of shift and I will discuss with Dr. Barnett will follow up the CT and disposition planning, which I assume will be antibiotics and continue anti nausea medicines and home. <Michael Deras MD - Last Filed: 09/27/24 15:44> patient was signed out to me pending results of her imaging studies. Her CT scan showed no acute concerning abnormalities as reviewed by myself the radiologist. Her ultrasound showed mild elevated main portal vein the loss of of unknown significance. She has no history of liver disorders and this is unlikely to be cirrhosis related. She had normal liver enzyme test earlier today. I did inform her to follow up outpatient for this I informed her and is of unknown clinical significance. She will be discharged with antibiotics. she not think the Zofran was helping so I will switch her to Reglan. She is agreeable to this <Cruz Cool DO - Last Filed: 09/27/24 17:54> Imaging Data CT scan abdomen pelvis: Attestation: I have reviewed the pertinent imaging results. <Cruz Cool DO - Last Filed: 09/27/24 17:54> Radiologist's impression: 1. No evidence of nephrolithiasis or hydronephrosis. 2. No dilated bowel or localized inflammation. 3. Left ovarian low-density lesion measuring 2.0 centimeters, presumed ovarian cyst, with small free fluid in the cul de sac. Please note that all CT scans at this facility use dose modulation, iterative reconstruction, and/or weight-based dosing when appropriate to reduce radiation dose to as low as reasonably achievable. Dictated by Jermaine Torres MD @ 09/27/2024 4:17:03 PM <Cruz Cool DO - Last Filed: 09/27/24 17:54> US - abdomen: Attestation: I have reviewed the pertinent imaging results. <Cruz Cool DO - Last Filed: 09/27/24 17:54> Radiologist's impression: Mildly elevated main portal vein velocity measuring 51.2 centimeters/second which is of uncertain clinical significance. Otherwise, unremarkable sonographic appearance of the right upper abdominal quadrant. Dictated by Jadon Steward MD @ 09/27/2024 4:54:26 PM <Cruz Cool DO - Last Filed: 09/27/24 17:54> Discharge Plan Discharge Clinical Impression: Pyelonephritis, Dehydration <Michael Deras MD - Last Filed: 09/27/24 15:44> Patient Disposition: Home w/ Parent or Adult <Michael Deras MD - Last Filed: 09/27/24 15:44> Condition: Stable <Michael Deras MD - Last Filed: 09/27/24 15:44> Additional Instructions: Light activity, fluids, Septra DS 1 p.o. b.i.d. x7 days, continue Zofran as needed, recheck with regular doctor next 2-3 days, return to ED if not improving changes or worsening. Ultrasound showed a mildly elevated portal vein velocity. This is of uncertain clinical significance as unlikely related to current symptoms. You can follow- up outpatient for this. You also have a left ovarian lesion measuring about 2 cm. This is likely an ovarian cyst. Again this is unlikely to be causing her current symptoms but you may follow-up with OB if you begin to have symptoms in the area <Michael Deras MD - Last Filed: 09/27/24 15:44> Activity Level: Light activity <Michael Deras MD - Last Filed: 09/27/24 15:44> Light activity <Cruz Cool DO - Last Filed: 09/27/24 17:54> Discharge Diet: Regular <Michael Deras MD - Last Filed: 09/27/24 15:44> Regular <Cruz Cool DO - Last Filed: 09/27/24 17:54> Prescriptions: New sulfamethoxazole-trimethoprim 800-160 mg tablet 1 tab PO BID 7 Days Qty: 14 0RF metoclopramide HCl 10 mg tablet 10 mg PO Q6H PRN (Reason: nausea and vomiting) Qty: 20 0RF No Action riboflavin (vitamin B2) 100 mg tablet 200 mg PO BID magnesium gluconate 12.5 mg magne- sium (250 mg) tablet 250 mg PO BID albuterol sulfate 90 mcg/actuation HFA aerosol inhaler 2 puff inhalation Q4-6H PRN (Reason: shortness of breath or wheezing) Qty: 6.7 1RF hydroxyzine pamoate 25 mg capsule 25 mg PO Q6H PRN (Reason: anxiety) Qty: 30 2RF lorazepam 1 mg tablet 1 mg PO BID PRN (Reason: anxiety) Qty: 10 0RF Rx Instructions: Take for severe anxiety. ondansetron 4 mg tablet,disintegrating 4 - 8 mg PO Q6H PRN (Reason: nausea and vomiting) Qty: 20 0RF sumatriptan succinate 100 mg tablet 100 mg PO ONCE PRN (Reason: migraine headache) Qty: 9 1RF Rx Instructions: Okay to repeat dose once after 2 hours if initial dose is not effective. <Michael Deras MD - Last Filed: 09/27/24 15:44> Follow Up/Referrals: Deven Boyer MD [Primary Care Provider] - <Michael Deras MD - Last Filed: 09/27/24 15:44> Stand Alone Forms: [employer] Info Instructions <Michael Deras MD - Last Filed: 09/27/24 15:44>
--- OUTSIDE RECORDS SUMMARY | 2024-09-27 15:40 | XMS_ITS | Data Portability ---
Author Organization [place] - [facility], [employer] - [employer] [facility] Address [address] [place] [address] Assessment Encounter Date Assessment Date Assessment LastModified by Organization Details LastModified Time 06/09/2024 06/09/2024 ASSESSMENT: Patient is a good candidate for conservative care and the prognosis is for a favorable outcome that achieves the patients' goals. We discussed etiology, activity modifications, home care, and other treatment options. Initially, it is recommended that the patient receive in-office treatment 1 times per week for 8 weeks at which time a re-evaluation will be performed to determine an appropriate change in plan. Initially, treatment will focus on joint manipulation to restore range of motion and reduce pain. We will slowly progress to therapeutic exercises and activities to improve function, strength, and stability may also be used as warranted. If the patient is not responding as expected, more invasive procedures will be discussed along with a referral. All considerations above were discussed with the patient and questions answered to satisfaction. If the patient should have any additional questions, or should the condition evolve or worsen, the patient should not hesitate to contact our office. ecram Not available 06/10/2024 08:41:25 06/12/2024 06/12/2024 ASSESSMENT: Patient is a good candidate for conservative care and the prognosis is for a favorable outcome that achieves the patients' goals. We discussed etiology, activity modifications, home care, and other treatment options. Initially, it is recommended that the patient receive in-office treatment 1 times per week for 8 weeks at which time a re-evaluation will be performed to determine an appropriate change in plan. Initially, treatment will focus on joint manipulation to restore range of motion and reduce pain. We will slowly progress to therapeutic exercises and activities to improve function, strength, and stability may also be used as warranted. If the patient is not responding as expected, more invasive procedures will be discussed along with a referral. All considerations above were discussed with the patient and questions answered to satisfaction. If the patient should have any additional questions, or should the condition evolve or worsen, the patient should not hesitate to contact our office. ecram Not available 06/12/2024 12:05:11 Plan of Treatment Reminders Order Date Submit Date Provider Last Modified By Organization Details Last Modified Time Details Appointments None record ed. Lab None record ed. Referral None record ed. Procedures None record ed. Surgeries None record ed. Imaging None record ed. Medication Orders None record ed. Patient TargetsNo targets recorded. Patient InstructionsNo instructions recorded. Reason for Referral None Reported. 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 Procedures Surgical History Date Name Laterality Status Provider Name and Address Organization Details Recorded Time 4 40835: Spinal manipulation , 3 to 4 regions completed Booker Can DC [address], [place], [address], [facility] 06/12/2024 12:06:40 [address]2650: Spinal manipulation , 3 to 4 regions completed Booker Can DC [address], [place], [address], [facility] 06/10/2024 08:44:12 Imaging Results None recorded. Procedure Notes None recorded. Medical Equipment None Reported. Medications Name Sig Start Date Stop Date Status Note LastModified by Organization Details LastModified Time sumatriptan 100 mg tablet TAKE 1 TABLET BY MOUTH NEEDED. MAY REPEAT AFTER TWO HOURS. MAXIMUM DOSE 200MG/24 HOURS active Not Available Not Available No t Available sumatriptan 25 mg tablet active Not Available Not Available Not Available prednisone 20 mg tablet TAKE 3 TABLETS BY MOUTH DAILY FOR 2 DAYS THEN TAKE 2 TABLETS BY MOUTH DAILY FOR 2 DAYS THEN TAKE 1 TABLET BY MOUTH DAILY FOR 2 DAYS active Not Available Not Available No t Available omeprazole 40 mg capsule,delay ed release TAKE 1 CAPSULE BY MOUTH EVERY DAY active Not Available Not Available No t Available lorazepam 1 mg tablet TAKE 1 TABLET BY MOUTH TWICE DAILY NEEDED FOR ANXIETY OR SEVERE ANXIETY active Not Available Not Available No t Available albuterol sulfate HFA 90 mcg/actuation aerosol inhaler INHALE 2 PUFFS BY MOUTH EVERY 4 TO 6 HOURS NEEDED FOR SHORTNESS OF BREATH OR WHEEZING active Not Available Not Available No t Available amoxicillin 875 mg-potassium clavulanate 125 mg tablet TAKE 1 TABLET BY MOUTH TWICE DAILY FOR 10 DAYS active Not Available Not Available No t Available hydroxyzine pamoate 25 mg capsule TAKE 1 CAPSULE BY MOUTH EVERY 6 HOURS NEEDED FOR ANXIETY active Not Available Not Available No t Available bupropion HCl XL 300 mg 24 hr tablet, extended release TAKE 1 TABLET BY MOUTH EVERY MORNING active Not Available Not Available No t Available Vitals None Recorded Social History None recorded. Functional Status None recorded. Mental Status None recorded. Family History Nothing Reported. Medical History No medical history recorded. Gynecological HistoryNo gynecological history recorded. Obstetrics History GPAL:G 0 P 0 0 0 0 Past Encounters Encounter ID Performer Location Encounter Start Date Encounter Closed Date Diagnosis/Indication Diagnosis SNOMED-CT Code Diagnosis ICD10 Code Diagnosis Note [id number] KASEY Hemphill [facility] [address] [facility] [place] [address] 06/09/2024 18:30:27 06/14/2024 16:32:44 Lumbar segmental dysfunction 034039400 M99.03 Low back pain 043374595 M54.50 Somatic dy sfunction of sacral spine 522201919 M99.04 Thoracic s egmental dysfunction 157707379 M99.02 [id number] KASEY Hemphill [facility] [address] [place] [address] 06/12/2024 11:30:16 06/12/2024 12:15:15 Lumbar segmental dysfunction 997363478 M99.03 Low back pain 869797582 M54.50 Somatic dy sfunction of sacral spine 787237800 M99.04 Thoracic s egmental dysfunction 560802691 M99.02 Health Concerns Section Related Observation LastModified by Organization Detai ls LastModified Time None Recorded Concern Status LastModified by Organization Details LastModified Time None Recorded Advance Directives Directive None Recorded Payers Encounter Date Sequence Insurance Name Policy Number Policy Elias Covered Member ID Elias Member ID Guarantor Name 06/09/2024 1 [facility] [id number] Jamee Sepulveda [id number] Jamee Sepulveda 06/12/2024 1 R [id number] Jamee Sepulveda [id number] Jamee Sepulveda Notes Date Note Type Note Provider Name and Address Organization Details Recorded Time 06/09/2024 text/html HPI - Lumbar SpineReported bypatient.Location: bilateral; With radiation to knee Quality:aching; sharp Severity:severe; pain level 8/10 Timing:date of onset:; Happened today raking leaves sharp lower back pain. Duration:acute Context:bending; twisting; overuse Aggravating Factors:standing; bending/squatting; weightbearing; changing clothes; going from sit to stand; downstairs Alleviating Factors:lying down; ice Associated Symptoms:buckling;r adiation down leg Previous PT or Chiropractic:helped significantly Booker Can DC [address], [place], [address], [facility] 06/10/2024 08:44:59 06/12/2024 text/html HPI - Lumbar SpineReported bypatient.Location: bilateral; With radiation to knee Quality:aching; sharp Severity:improving Timing:date of onset: (05/09/2024) Duration:acute Context:bending; lifting; twisting Aggravating Factors:lifting; bending/squatting; pushing/pulling Alleviating Factors:lying down; ice; rest; stretching; respiratory care specialist Previous PT or Chiropractic:helped significantly Booker Can DC [address] [place] [address], [place], [address], [facility] 06/12/2024 12:07:06 OBGyn Episode No OBEpisode recorded.
--- OUTSIDE RECORDS SUMMARY | 2024-09-27 15:40 | XMS_ITS | Clinical Summary ---
Author Organization [facility] Address [address] [place] [address] Care Team Providers Care Keeler Polygraph Operator Name Role Phone Unavailable Primary Care Provider Unavailabl e Source Comments Patient records contain information from all sites at [facility]. For routine questions regarding patient records, call [phone] during business hours, M-F 8:00 AM - 5:00 PM Central Time. Record requests for emergency care only can be directed to [phone] at any time.[facility] Allergies No known active allergies Medications * [...] Years Used Date Smoking Tobacco: Never Assessed [facility] Utilities Answer Date Recorded In the past 12 months has th e [employer], gas, oil, or water [employer] threatened to shut off services in your [...] your living situation today? 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 Legal Sex Female 10:24 AM IRONWORKER APPRENTICE SHOP Gender Identity Female 06/07/2023 10:27 AM IRONWORKER APPRENTICE SHOP Sexual Orientation Straight 06/07/2023 10 :27 AM IRONWORKER APPRENTICE SHOP Last Filed Vital Signs Vital Sign Reading Time Taken Comments Blood Pressure 111/78 07/19/2023 2:23 PM IRONWORKER APPRENTICE SHOP Pulse 80 07/19/2023 2:23 PM IRONWORKER APPRENTICE SHOP Temperature - - Respiratory Rate - - Oxygen Saturation - - Inhaled Oxygen Concentration - - Weight 86 kg (189 lb 9.5 oz) 07/19/2023 2:23 PM IRONWORKER APPRENTICE SHOP Height 175.1 cm (5' 8.94) 07/19/2023 2:23 PM CS T Body Mass Index 28.05 07/19/2023 2:23 PM IRONWORKER APPRENTICE SHOP Plan of Treatment Health Maintenance Due Date [...] patient's age to complete this topic Insurance [facility]
[2024-09-27] MEDS: KETOROLAC 15 MG/ML inj IVP (15:56)
[2024-09-27] MEDS: 0.9 % SODIUM CHLORIDE 1000 ml 1,000 ML 6000 ML IV (15:56)
[2024-09-27] MEDS: cefTRIAXone 1 GM in 0.9 % SODIUM CHLORIDE Mini-bag 100 ML IVPB (16:26)
[2024-09-27 16:31] VITALS: BP 103/71; PULSE 62; RESP 16; O2SAT 99
== END 2024-09-27 17:36 | disposition home or self-care (01) ==
PROVIDERS: Emergency Provider Family Medicine; PCP Family Medicine
DX: N12 Tubulo-interstitial nephritis, not specified as acute or chronic (principal); E86.0 Dehydration
CPT/HCPCS: 74176; 76705; 80053; 83690; 87086; 96365; 96375; 99284; J0696; J1885; J7030

== ENCOUNTER 2024-10-09 14:46 | Outpatient (CLI) | payer BC, SELFPAY ==
[2024-10-09 15:17] LABS: Basophils Absolute Auto 0.02 K/uL (0.00-0.30); Basophils Percent Auto 0.3 % (0.0-3.0); Eosinophils Absolute Auto 0.01 K/uL (0.00-0.50); Eosinophils Percent Auto 0.1 % (0.0-7.0); Hematocrit 39.9 % (33.0-51.0); Hemoglobin* 13.5 gm/dL (12.0-16.0); Immature Granulocytes Abs Auto 0.01 K/uL (0.00-0.30); Immature Granulocytes Pct Auto 0.1 %; Lymphocytes Percent Auto 30.4 % (20-44); Mean Corpuscular HGB Conc 34 gm/dL (32-36); Mean Corpuscular Hemoglobin 31 pg (26-34); Mean Corpuscular Volume 93 fL (80-100); Monocytes Absolute Auto 0.42 K/UL (0.00-0.90); Neutrophils Absolute Auto 4.39 K/uL (1.7-7.0); Neutrophils Percent Auto 63.1 % (42.0-72.0); Platelet Count* 291 K/uL (140-440); RDW Coefficient of Variation % 12.9 % (11.5-15.5); Slide Review Reflex No; White Blood Count* 6.97 K/uL (4.50-11.00)
[2024-10-09 17:39] LABS: Albumin* 4.5 g/dL (3.3-5.0); Chloride* 103 mmol/L (96-114); Sodium* 136 mmol/L (135-149)
[2024-10-09 17:40] LABS: Potassium* 4.3 mmol/L (3.6-5.1)
[2024-10-09 17:42] LABS: Alanine Aminotransferase* 15 U/L (4-35); Anion Gap 11 mEq/L (7-15); Aspartate Amino Transferase* 16 U/L (12-35); Blood Urea Nitrogen* 7 mg/dL (5-24); Carbon Dioxide* 22 mmol/L (20-32); Creatinine* 0.8 mg/dL (0.5-1.5); Estimated Glomerular Filt Rate 100 ml/min
[2024-10-09 17:43] LABS: Alkaline Phosphatase* 50 U/L (40-150); Bilirubin Total* 0.6 mg/dL (0.1-1.5); Calcium* 9.7 mg/dL (8.4-10.6); Glucose* 86 mg/dL (60-115); Total Protein* 7.1 g/dL (6.0-8.3)
== END 2024-10-09 14:47 | disposition home or self-care (01) ==
LOC: NFLDREF 14:48
PROVIDERS: PCP Family Medicine; Visit Provider Family Medicine
DX: N12 Tubulo-interstitial nephritis, not specified as acute or chronic (principal)
CPT/HCPCS: 80053; 85025

== ENCOUNTER 2024-11-11 23:19 | Emergency (ER) | payer OTHER, BC, SELFPAY ==
--- OUTSIDE RECORDS SUMMARY | 2024-11-11 23:21 | XMS_ITS | Data Portability ---
Author Organization [place] - [facility], [employer] - [employer] Address [address] [place] [address] Assessment Encounter Date Assessment Date Assessment LastModified [...] Organization Details Recorded Time Lumbar segmental dysfunction 880761717 Active 2023 Booker Can DC [address] [facility], [place], [address], [facility] 4 08:41:27 Low back pain 447741954 Active 2023 Booker Can DC [address] [facility] [address], [place], [address], [facility] 4 08:41:27 Thoracic segmental dysfunction 188589759 Active 2023 Booker Can DC [address] [facility] [facility], [place], [address], [facility] 4 08:41:27 Somatic dysfunction of sacral spine 980647865 Active 2023 Booker Can DC [address] [facility], [place], [address], [facility] 4 08:41:27 Problem Notes None recorded. Procedures Surgical History Date Name Laterality Status Provider Name and Address Organization Details Recorded Time 4 68715: Spinal manipulation , 3 to 4 regions completed Booker Can DC [address] [facility], [place], [address], [facility] 06/12/2024 12:06:40 58691: Spinal manipulation , 3 to 4 regions completed Booker Can DC [address] [facility], [place], [address], [facility] 06/10/2024 08:44:12 Imaging Results None recorded. Procedure [...] SNOMED-CT Code Diagnosis ICD10 Code Diagnosis Note [id number] KASEY Hemphill [facility] [address] [facility] [address] [facility] VALARIE Valentin [address] 06/09/2024 18:30:27 06/14/2024 16:32:44 Lumbar segmental dysfunction 013142378 M99.03 Low back pain 801730872 M54.50 Somatic dy sfunction of sacral spine 791902795 M99.04 Thoracic s egmental dysfunction 823912900 M99.02 [id number] KASEY Hemphill [facility] [address] [address] [place] [address] 06/12/2024 11:30:16 06/12/2024 12:15:15 Lumbar segmental dysfunction 647121828 M99.03 Low back pain 208189425 M54.50 Somatic dy sfunction of sacral spine 960331071 M99.04 Thoracic s egmental dysfunction 528785206 M99.02 Health Concerns Section Related Observation LastModified by Organization Detai ls LastModified Time None Recorded Concern Status LastModified by Organization Details LastModified Time None Recorded Advance Directives Directive None Recorded Payers Encounter Date Sequence Insurance Name Policy Number Policy Elias Covered Member ID Elias Member ID Guarantor Name 06/09/2024 1 [facility] [id number] Jamee Sepulveda [id number] Jamee Sepulveda 06/12/2024 1 R [id number] Jamee Sepulveda [id number] Jamee Sepulveda Notes Date Note Type Note [...] or Chiropractic:helped significantly Booker Can DC [address] [facility] [facility], [place], [address], [facility] 06/10/2024 08:44:59 06/12/2024 text/html HPI - Lumbar SpineReported bypatient.Location: bilateral; With radiation to knee Quality:aching; sharp Severity:improving Timing:date of onset: (05/09/2024) Duration:acute Context:bending; lifting; twisting Aggravating Factors:lifting; bending/squatting; pushing/pulling Alleviating Factors:lying down; ice; rest; stretching; in home caregiver Previous PT or Chiropractic:helped significantly Booker Can DC [address] [place] [address], [place], [address], [facility] - [facility] 06/12/2024 12:07:06 OBGyn Episode No OBEpisode recorded.
--- OUTSIDE RECORDS SUMMARY | 2024-11-11 23:21 | XMS_ITS | Clinical Summary ---
Author Organization [facility] Address [address] [place] [address] Care Team Providers Care Fork Lift Mechanic Name Role Phone Unavailable Primary Care Provider Unavailabl e Source Comments Patient records contain information from all sites at [facility]. For routine questions regarding patient records, call [phone] during business hours, M-F 8:00 AM - 5:00 PM Central Time. 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 TEACHER Legal Sex Female 10:24 AM MINERAL INDUSTRY TEACHER Gender Identity Female 06/07/2023 10:27 AM MINERAL INDUSTRY TEACHER Sexual Orientation Straight 06/07/2023 10 :27 AM MINERAL INDUSTRY TEACHER Last Filed Vital Signs Vital Sign Reading Time Taken Comments Blood Pressure 111/78 07/19/2023 2:23 PM MINERAL INDUSTRY TEACHER Pulse 80 07/19/2023 2:23 PM MINERAL INDUSTRY TEACHER Temperature - - Respiratory Rate - - Oxygen Saturation - - Inhaled Oxygen Concentration - - Weight 86 kg (189 lb 9.5 oz) 07/19/2023 2:23 PM MINERAL INDUSTRY TEACHER Height 175.1 cm (5' 8.94) 07/19/2023 2:23 PM CS T Body Mass Index 28.05 07/19/2023 2:23 PM MINERAL INDUSTRY TEACHER Plan of Treatment Health Maintenance Due Date [...]
[2024-11-11 23:23] VITALS: BP 124/84; PULSE 87; RESP 16; TEMP 36.7; O2SAT 99; BMI 25.1
--- NOTE | 2024-11-11 23:41 | ED.HA ---
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 She states that she has been getting headaches much more frequently over the past month or 2 since having pyelonephritis. She does see a neurologist. She is taking sumatriptan and did take this prior to arrival here without much relief. She states that she does get pre-existing aura and sometimes altered sensation followed by headache. This again occurred today. She arrives here with normal vital signs. Related Data Home Medications ?Medication ?Instructions ?Recorded ?Confirmed magnesium gluconate 12.5 mg 250 mg PO BID 04/24/24 10/09/24 magnesium (250 mg) tablet riboflavin (vitamin B2) 100 mg 200 mg PO BID 04/24/24 10/09/24 tablet Previous Rx's ?Medication ?Instructions ?Recorded albuterol sulfate 90 mcg/actuation 2 puff inhalation Q4-6H PRN 04/24/24 aerosol inhaler shortness of breath or wheezing #6.7 grams hydroxyzine pamoate 25 mg capsule 25 mg PO Q6H PRN anxiety #30 caps 04/24/24 lorazepam 1 mg tablet 1 mg PO BID PRN anxiety #10 tabs 04/24/24 ondansetron 4 mg disintegrating 4 - 8 mg (1 - 2 x 4 mg) PO Q6H PRN 09/19/24 tablet nausea and vomiting #20 tabs sumatriptan succinate 100 mg tablet 100 mg PO ONCE PRN migraine 09/19/24 headache #9 tabs metoclopramide HCl 10 mg tablet 10 mg PO Q6H PRN nausea and 09/27/24 vomiting #20 tabs sulfamethoxazole 800 1 tab PO BID 7 days #14 tabs 10/02/24 mg-trimethoprim 160 mg tablet prochlorperazine maleate 10 mg 10 mg PO Q6H PRN nausea and 10/09/24 tablet vomiting #30 tabs amitriptyline 25 mg tablet 25 mg PO QHS #30 tabs 11/11/24 Allergies Allergy/AdvReac Type Severity Reaction Status Date / Time nickel Allergy Mild Rash Verified 11/02/24 15:15 LAUNDRY SOAP Allergy Intermediate Rash Uncoded 11/02/24 15:15 Review of Systems Status of ROS: Reports: 10 or more systems reviewed and unremarkable except as noted in History and below Narrative: Constitutional: No fevers, no weight gain or loss. Eyes: No discharge. No vision changes. HENT: No congestion, no sore throat, no ear pain. Cardiovascular: No chest pain, no palpitations. Respiratory: No shortness of breath, no wheezes, no cough. Gastrointestinal: No abdominal pain, no vomiting, no diarrhea. Genitourinary: No dysuria, no hematuria. Musculoskeletal: Normal range of motion. Skin: No rashes, no pruritis. Neurological: No dizziness, weakness, sensory change, speech change. Endo/Heme/Allergies: No bruising or bleeding. No polydipsia. Pysch: no suicidality, no anxiety, no insomnia. All other systems reviewed and are negative. [facility] Medical History Headache ?R51.9 - Headache, unspecified (ICD-10) Family History Aunt Breast cancer Maternal Grandmother Coronary artery disease Ovarian cancer Father Thyroid cancer Social History (System 11/02/24 @ 15:15 by Kristie Avila) Narrative: Former smoker Does not use illicit drugs Does not drink alcohol What is your current living situation?: I presently have a place to live Problems where you live: no known problems In the past 12 months, utilities in danger of being shut off: no In past 12 months, lack of transportation kept you from medical appts, meetings, work, or getting things needed for daily living: no In the past 12 mos, have been you worried that your food would run out before you had money to buy more?: never true In the past 12 mos, the food you bought just didn't last and you didn't have money to buy more?: never true Smoking Status: Never smoker How often do you have a drink containing alcohol: monthly or less AUDIT-C Alcohol total score: 1 Non-prescribed substance use: denies use How often does anyone, including family, friends and others, physically hurt you: never How often does anyone, including family, friends and others, insult or talk down to you: never How often does anyone, including family, friends and others, threaten you with harm: never How often does anyone, including family, friends and others, scream or curse at you: never Exam Narrative: Exam Narrative: Constitutional: Well-developed, well-nourished, no acute distress. HEENT: Normocephalic, atraumatic. Neck: Normal range of motion. Nontender. Supple. Heart: Intact distal pulses. Lungs: No chest discomfort. No wheezes, rhonchi, or rales. Abdomen: Nontender. Back: Normal range of motion. Extremities: Normal range of motion. No injury. Skin: Intact. No rash. Warm. No erythema or pallor. Neurologic: No altered sensation. No weakness. Alert and oriented. Psychiatric: No suicidality. No anxiety or depression. No insomnia. Nursing notes and vitals signs are reviewed. Const: Vital Signs, click to edit/add: Vital Signs - 24 hr 11/11/24 23:23 Temperature 98.1 F Pulse Rate [Pulse Oximeter] 87 Respiratory Rate 16 Blood Pressure [Ri ght Upper Arm] 124/84 Pulse Oximetry 99 Oxygen Delivery Me thod Room Air Course Vital Signs Vital signs: Initial Vital Signs Temperature 98.1 F 11/11/24 23:23 Temperature Source Temporal Artery Scan 11/11/24 23:23 Pulse Rate 87 11/11/24 23:23 Respiratory Rate 16 11/11/24 23:23 Blood Pressure 124/84 11/11/24 23:23 Blood Pressure Mean 97 11/11/24 23:23 Blood Pressure Position Sitting 11/11/24 23:23 Pulse Oximetry 99 11/11/24 23:23 Oxygen Delivery Method Room Air 11/11/24 23:23 Vital Signs Temperature 98.1 F 11/11/24 23:23 Pulse Rate 87 11/11/24 23:23 Respiratory Rate 16 11/11/24 23:23 Blood Pressure 124/84 11/11/24 23:23 Pulse Oximetry 99 11/11/24 23:23 Oxygen Delivery Method Room Air 11/11/24 23:23 Temperature 98.1 F 11/11/24 23:23 Pulse Rate 87 11/11/24 23:23 Respiratory Rate 16 11/11/24 23:23 Blood Pressure 124/84 11/11/24 23:23 Pulse Oximetry 99 11/11/24 23:23 Oxygen Delivery Method Room Air 11/11/24 23:23 MDM - Headache MDM Narrative Medical decision making narrative: This patient comes in with a typical migraine. She arrives with normal vital signs. There is no need for imaging or further workup. She is seeing a neurologist. An IV was established where she received Toradol 30 mg, Benadryl 50 mg, and Zofran 4 mg. This patient is not on any preventative medication and I did list a few options that sometimes can help and she was agreeable to try amitriptyline. I did provide a prescription for this for her. She has a follow-up appointment with her primary physician and can review some options in this regard. Discharge Plan Discharge Clinical Impression: Migraine headache Patient Disposition: Home, Self-Care Condition: Stable Additional Instructions: Try amitriptyline as a possible migraine preventative. Follow up with MD as scheduled or return if worsening. Prescriptions: New amitriptyline 25 mg tablet 25 mg PO QHS Qty: 30 2RF No Action riboflavin (vitamin B2) 100 mg tablet 200 mg PO BID magnesium gluconate 12.5 mg magne- sium (250 mg) tablet 250 mg PO BID albuterol sulfate 90 mcg/actuation HFA aerosol inhaler 2 puff inhalation Q4-6H PRN (Reason: shortness of breath or wheezing) Qty: 6.7 1RF hydroxyzine pamoate 25 mg capsule 25 mg PO Q6H PRN (Reason: anxiety) Qty: 30 2RF lorazepam 1 mg tablet 1 mg PO BID PRN (Reason: anxiety) Qty: 10 0RF Rx Instructions: Take for severe anxiety. ondansetron 4 mg tablet,disintegrating 4 - 8 mg PO Q6H PRN (Reason: nausea and vomiting) Qty: 20 0RF sulfamethoxazole-trimethoprim 800-160 mg tablet 1 tab PO BID 7 Days Qty: 14 0RF prochlorperazine maleate 10 mg tablet 10 mg PO Q6H PRN (Reason: nausea and vomiting) Qty: 30 0RF metoclopramide HCl 10 mg tablet 10 mg PO Q6H PRN (Reason: nausea and vomiting) Qty: 20 0RF sumatriptan succinate 100 mg tablet 100 mg PO ONCE PRN (Reason: migraine headache) Qty: 9 1RF Rx Instructions: Okay to repeat dose once after 2 hours if initial dose is not effective. Follow Up/Referrals: Deven Boyer MD [Primary Care Provider] - Stand Alone Forms: [employer] ([employer]) Info Instructions
[2024-11-11 23:44] VITALS: TEMP 36.7
[2024-11-11] MEDS: ONDANSETRON 2 MG/ML inj 4 MG IVP (23:44)
[2024-11-11] MEDS: KETOROLAC 30 MG/ML inj IVP (23:44)
[2024-11-11] MEDS: diphenhydrAMINE 50 MG/ML inj IVP (23:45)
--- OUTSIDE RECORDS SUMMARY | 2024-11-11 23:53 | XMS_ITS | Clinical Summary ---
Author Organization [facility] Address [address] [place] [address] Care Team Providers Care Director Of Personnel Name Role Phone Unavailable Primary Care Provider Unavailabl e Source Comments Patient records contain information from all sites at [facility]. For routine questions regarding patient records, call [phone] during business hours, M-F 8:00 AM - 5:00 PM Central Time. Record requests for emergency care only can be directed to [phone] at any time.[facility] Allergies No known active allergies Medications [...] Years Used Date Smoking Tobacco: Never Assessed [facility] Utilities Answer Date Recorded In the past 12 months has th e [employer], gas, oil, or water [employer] threatened to shut off services in your [...] [facility] 07/15/2023 Comments Unknown Sex and Gender Information Value Date Recorded Sex Assigned at Female 06/07/2023 10:27 AM SUPERVISOR CAR AND YARD Legal Sex Female 10:24 AM SUPERVISOR CAR AND YARD Gender Identity Female 06/07/2023 10:27 AM SUPERVISOR CAR AND YARD Sexual Orientation Straight 06/07/2023 10 :27 AM SUPERVISOR CAR AND YARD Last Filed Vital Signs Vital Sign Reading Time Taken Comments Blood Pressure 111/78 07/19/2023 2:23 PM SUPERVISOR CAR AND YARD Pulse 80 07/19/2023 2:23 PM SUPERVISOR CAR AND YARD Temperature - - Respiratory Rate - - Oxygen Saturation - - Inhaled Oxygen Concentration - - Weight 86 kg (189 lb 9.5 oz) 07/19/2023 2:23 PM SUPERVISOR CAR AND YARD Height 175.1 cm (5' 8.94) 07/19/2023 2:23 PM CS T Body Mass Index 28.05 07/19/2023 2:23 PM SUPERVISOR CAR AND YARD Plan of Treatment Health Maintenance Due Date [...] patient's age to complete this topic Insurance [facility]
== END 2024-11-12 00:20 | disposition home or self-care (01) ==
LOC: ED 23:52
PROVIDERS: Emergency Provider Emergency Medicine Emergency Medical Services; PCP Family Medicine
DX: G43.909 Migraine, unspecified, not intractable, without status migrainosus (principal)
CPT/HCPCS: 96374; 96375; 99284; J1200; J1885; J2405

== ENCOUNTER 2024-11-16 13:57 | Outpatient (CLI) | payer BC, OTHER, SELFPAY | END 2024-11-16 13:58 | disposition home or self-care (01) | PROVIDERS: PCP Family Medicine; Visit Provider Family Medicine | DX: R10.12 Left upper quadrant pain (principal); E04.1 Nontoxic single thyroid nodule; N12 Tubulo-interstitial nephritis, not specified as acute or chronic | CPT/HCPCS: 80053; 83690; 84439; 84443; 84481; 86140; 87086 ==

== ENCOUNTER 2024-12-11 08:43 | Outpatient (CLI) | payer BC, SELFPAY ==
--- NOTE | 2024-12-11 09:44 | P.ANES_ITS ---
Anesthesia Charges Start Date/Time Anesthesia Start Date: 12/11/24 Anesthesia Start Time: 09:24 Stop Date/Time Anesthesia Stop Date: 12/11/24 Anesthesia Stop Time: 09:44 Coding CPT Codes CPT Codes: ANES UPR GI NDSC PX NOS - 85675 ([id number]) P1 - NORMAL HEALTHY PATIENT, QX - ICE CREAM MAN MURPHY W/ MED DIRECTION, QK - ORDER PACKER OR PACKAGER 2-4 CNCRNT ANES PROC
--- NOTE | 2024-12-11 09:44 | W.ANESCHARGE ---
Anesthesia Charges Start Date/Time Anesthesia Start Date: 12/11/24 Anesthesia Start Time: 09:24 Stop Date/Time Anesthesia Stop Date: 12/11/24 Anesthesia Stop Time: 09:44 Coding CPT Codes CPT Codes: ANES UPR GI NDSC PX NOS - 08654 ([id number]) P1 - NORMAL HEALTHY PATIENT, QX - FARM RANCHER MURPHY W/ MED DIRECTION, QK - ADVANCED DEVELOPER 2-4 CNCRNT ANES PROC
--- NOTE | 2024-12-11 10:11 | P.ANES_ITS ---
Anesthesia Charges Start Date/Time Anesthesia Start Date: 12/11/24 Anesthesia Start Time: 09:24 Stop Date/Time Anesthesia Stop Date: 12/11/24 Anesthesia Stop Time: 09:44 Coding CPT Codes CPT Codes: ANES UPR GI NDSC PX NOS - 38666 ([id number]) P1 - NORMAL HEALTHY PATIENT, QK - BROKERAGE PURCHASE AND SALE CLERK 2-4 CNCRNT ANES PROC, QX - SCHOOL BUS TECHNICIAN SVDominic W/ MED DIRECTION
--- NOTE | 2024-12-11 10:11 | W.ANESCHARGE ---
Anesthesia Charges Start Date/Time Anesthesia Start Date: 12/11/24 Anesthesia Start Time: 09:24 Stop Date/Time Anesthesia Stop Date: 12/11/24 Anesthesia Stop Time: 09:44 Coding CPT Codes CPT Codes: ANES UPR GI NDSC PX NOS - 57003 ([id number]) P1 - NORMAL HEALTHY PATIENT, QK - WALLPAPER HANGER HELPER 2-4 CNCRNT ANES PROC, QX - INFORMATION CODER SVDominic W/ MED DIRECTION
== END 2024-12-11 08:44 | disposition home or self-care (01) ==
LOC: OP CLINIC 08:44
PROVIDERS: PCP Family Medicine; Visit Provider Surgery
DX: R10.13 Epigastric pain (principal); R10.12 Left upper quadrant pain
CPT/HCPCS: 00731; 43239; J2704; J3490

== ENCOUNTER 2024-12-15 08:25 | Outpatient (CLI) | payer BC, SELFPAY ==
--- NOTE | 2024-12-15 09:00 | CRLHL7_ITS ---
For Patients: As a result of the Century Cures Act, medical imaging exams and procedure reports are released immediately into your electronic medical record. You may view this report before your referring provider. If you have questions, please contact your health care provider. INDICATION: PERSISTENT LUQ ABD PAIN FOR 3 MONTHS, INTERMITTENT NAUSEA AND vomiting TECHNIQUE: CT abdomen and pelvis acquired with 80 cc Isovue 370 IV contrast. COMPARISON: September 2024. FINDINGS: Lower chest: The visualized lower lungs are aerated. No pleural or pericardial effusion. ABDOMEN: Liver: Normal enhancement. No focal suspicious hepatic lesions. Gallbladder and biliary: Contracted gallbladder. Normal caliber bile ducts. Spleen: Normal size and enhancement. Pancreas: Normal enhancement without peripancreatic inflammatory changes or ductal dilatation. Adrenal glands: Normal adrenal glands. Kidneys and ureters: Normal enhancement. No radio-opaque calculi. No hydroureteronephrosis. GI tract: Stomach is partially distended with fluid, oral debris, and air. Normal caliber small and large bowel loops. Normal appendix with tiny appendicolith. Vascular structures: Normal caliber abdominal aorta. Lymph nodes: No lymphadenopathy in the abdomen or pelvis by size criteria. Peritoneum: Trace free fluid pelvis, likely physiologic. No free air or focal drainable collection. PELVIS: Genitourinary system: Urinary bladder is relatively decompressed. Age-appropriate uterus. Likely involuting left corpus luteum cyst. SKELETAL STRUCTURES AND SOFT TISSUES: No suspicious lytic or blastic lesions. IMPRESSION: No discrete acute abdominopelvic process. No obstruction. No hydroureteronephrosis. Normal appendix. No imaging findings to explain the reported clinical symptoms. Please note that all CT scans at this facility use dose modulation, iterative reconstruction, and/or weight-based dosing when appropriate to reduce radiation dose to as low as reasonably achievable. Dictated by David Blood MD @ 12/15/2024 12:33:00 PM (Electronically Signed)
== END 2024-12-15 08:26 | disposition home or self-care (01) ==
LOC: CT 08:26
PROVIDERS: PCP Family Medicine; Visit Provider Family Medicine
DX: R10.9 Unspecified abdominal pain (principal)
CPT/HCPCS: 74177; Q9967

== ENCOUNTER 2024-12-20 14:20 | Outpatient (CLI) | payer BC, SELFPAY | END 2024-12-20 14:21 | disposition home or self-care (01) | PROVIDERS: PCP Family Medicine; Referring Provider Family Medicine; Visit Provider Family Medicine | DX: D64.9 Anemia, unspecified (principal); R53.83 Other fatigue; R10.13 Epigastric pain; R11.0 Nausea; R10.9 Unspecified abdominal pain | CPT/HCPCS: 82024; 82088; 82306; 82533; 82607; 83690; 84244 ==

== ENCOUNTER 2024-12-26 13:48 | Outpatient (CLI) | payer BC, SELFPAY ==
--- NOTE | 2024-12-26 14:00 | CRLHL7_ITS ---
For Patients: As a result of the 21st Century Cures Act, medical imaging exams and procedure reports are released immediately into your electronic medical record. You may view this report before your referring provider. If you have questions, please contact your health care provider. INDICATION: 34-year-old woman with history of persistent upper abdominal pain. TECHNIQUE: 7.6 MCi Tc 99m Mebrofenin were administered intravenously and serial static images were obtained over the anterior abdomen over 60 minutes, demonstrating radiotracer uptake within the gallbladder and demonstrating tracer exiting into the small bowel. Subsequently, 1.4 Micrograms cholecystokinin was administered intravenously and the anterior abdomen was serially imaged with static views for another 30 minutes. COMPARISON: CT abdomen/pelvis 12/15/2024 FINDINGS: There is normal radionuclide activity in the liver, common bile duct, gallbladder and small bowel. There is no evidence for cystic or common duct obstruction or intrinsic liver disease. After administration of cholecystokinin, tracer is demonstrated exiting the gallbladder into the common bile duct and small bowel. The gallbladder ejection fraction measures 90%. Normal range for GB EF: Equal to or greater than 35%. IMPRESSION: 1. Normal hepatobiliary scan. 2. Gallbladder ejection fraction measures 90%, within normal limits. Dictated by Eleuterio Corral MD @ 12/26/2024 9:11:51 PM (Electronically Signed)
--- OUTSIDE RECORDS SUMMARY | 2024-12-27 00:53 | XMS_ITS | Data Portability ---
Author Organization [place] - [facility], autoContract - [employer] [facility] Address [address] [facility] [address] [place] [address] Assessment Encounter Date Assessment Date Assessment LastModified [...] Organization Details Recorded Time Lumbar segmental dysfunction 140750897 Active 2023 Booker Can DC [address] [facility], [place], [address], [facility] 4 08:41:27 Low back pain 662041636 Active 2023 Booker Can DC [address] [facility], [place], [address], [facility] 4 08:41:27 Thoracic segmental dysfunction 809265231 Active 2023 Booker Can DC [address] [facility], [place], [address], [facility] 4 08:41:27 Somatic dysfunction of sacral spine 276557429 Active 2023 Booker Can DC [address] [facility], [place], [address], [facility] 4 08:41:27 Problem Notes None recorded. Procedures Surgical History Date Name Laterality Status Provider Name and Address Organization Details Recorded Time 4 17579: Spinal manipulation , 3 to 4 regions completed Booker Can DC [address] [facility], [place], [address], [facility] 06/12/2024 12:06:40 10638: Spinal manipulation , 3 to 4 regions completed Booker Can DC [address] [facility], [place], [address], [facility] 06/10/2024 08:44:12 Imaging Results None recorded. Procedure [...] SNOMED-CT Code Diagnosis ICD10 Code Diagnosis Note [id number] KASEY Hemphill [facility] [address] [facility] [facility] Valentin [address] 06/09/2024 18:30:27 06/14/2024 16:32:44 Lumbar segmental dysfunction 874757061 M99.03 Low back pain 183437264 M54.50 Somatic dy sfunction of sacral spine 201625613 M99.04 Thoracic s egmental dysfunction 487851999 M99.02 [id number] KASEY Hemphill [facility] [address] [facility] [place] [address] 06/12/2024 11:30:16 06/12/2024 12:15:15 Lumbar segmental dysfunction 869495922 M99.03 Low back pain 123435363 M54.50 Somatic dy sfunction of sacral spine 690469947 M99.04 Thoracic s egmental dysfunction 050604779 M99.02 Health Concerns Section Related Observation LastModified by Organization Detai ls LastModified Time None Recorded Concern Status LastModified by Organization Details LastModified Time None Recorded Advance Directives Directive None Recorded Payers Insurance Date Sequence Insurance Name Policy Number Policy Elias Covered Member ID Elias Member ID Guarantor Name 06/09/2024 1 *SELF PAY* Sa prisca Sepulveda 06/09/2024 1 [facility] [id number] Jamee Sepulveda [id number] Jamee Sepulveda Notes Date Note Type Note [...] or Chiropractic:helped significantly Booker Can DC [address] [facility], [place], [address], [facility] 06/10/2024 08:44:59 06/12/2024 text/html HPI - Lumbar SpineReported bypatient.Location: bilateral; With radiation to knee Quality:aching; sharp Severity:improving Timing:date of onset: (05/09/2024) Duration:acute Context:bending; lifting; twisting Aggravating Factors:lifting; bending/squatting; pushing/pulling Alleviating Factors:lying down; ice; rest; stretching; transition of care specialist Previous PT or Chiropractic:helped significantly Booker Can DC [address] [place] [address], [place], [address], [facility] 06/12/2024 12:07:06 OBGyn Episode No OBEpisode recorded.
--- OUTSIDE RECORDS SUMMARY | 2024-12-27 00:53 | XMS_ITS | Clinical Summary ---
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 0 3 Active ascorbic acid (VITAMIN C) 100 mg tablet Take 1 tablet by mouth once daily. 0 3 Active vitamin B complex (VITAMIN B COMPLEX) tablet Take 1 tablet by mouth once daily. 0 3 Active traZODone (DESYREL) 100 mg tabletIndications: Insomnia, unspecified Take 1 tablet by mouth at bedtime if needed for Sleep. 90 tablet 3 4 Active ibuprofen (ADVIL; MOTRIN) 800 mg tabletIndications: Back muscle spasm,Neck muscle spasm,Rotator cuff strain Take 1 tablet by mouth 3 times daily if needed. 90 tablet 0 4 Active albuterol HFA 90 mcg/actuation inhalerIndications :Reactive airway disease, mild intermittent, uncomplicated (HC) Inhale 2 Puffs by mouth 4 times daily if needed. 1 Inhaler 0 6 Active SUMAtriptan (IMITREX) 100 mg tabletIndications: Migraine without aura and with status migrainosus, not intractable Take 1 tablet by mouth every 2 hours if needed for Migraine. Max dose: 200mg per 24 hrs. 9 tablet 3 7 Active norgestrel-ethinyl estradiol, 0.3-30 mg-mcg, (LO-OVRAL) 0.3-30 mg-mcg tabletIndications: Encounter for initial prescription of contraceptive pills Take 1 tablet by mouth once daily. 3 Packet 3 7 Active Active Problems Problem Noted Date Diagnosed Date Anxiety state, unspecified 04/24/2014 Major depression, single episode 04/24/2014 Insomnia, unspecified 04/24/2014 [place] of foot 04/24/2014 Migraine, unspecified, witho ut mention of intractable migraine without mention of status migrainosus 08/28/2008 Resolved Problems Problem Noted Date Diagnosed Date Resolved Date Surveillance of previously p rescribed intrauterine contraceptive device 05/08/20142014 Overview (05/08/2014): Mirena placed 05/08/2014. 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 Not on file Not on file Not on file Student Not on file Not on file Not on file Obstetrics History Para Term AB IAB SAB Ectopic Multiple Livin g Live Births 0 0 0 0 0 0 0 0 0 0 Last Filed Vital Signs Vital Sign Reading Time Taken Comments Blood Pressure 110/80 05/12/2017 7:57 AM 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 Pulse 108 05/12/2017 7:57 AM 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 Temperature 36.8 C (98.2 F) 05/12/2017 7:57 AM 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 Respiratory Rate 20 05/12/2017 7:57 AM 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 Oxygen Saturation 99% 05/12/2017 7:57 AM 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 Inhaled Oxygen Concentration - - Weight 83.2 kg (183 lb 8 oz) 05/12/2017 7:57 AM 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 Height 172 cm (5' 7.72) 05/07/2017 9:12 AM CDT Body Mass Index 28.13 05/07/2017 9:12 AM CDT Plan of Treatment Health Maintenance Due Date Last Done Comments Hepatitis C screening for age 18-79 01/08/2010 Hepatitis B series for 19+ (1 of 3 - 19+ 3-dose series) 01/08/2011 BMI (ht and wt on same day) for age 18+ 05/07/2018 05/07/2017, 01/26/2017, 01/25/2017, Additional history exists Depression screening for age 12+ 05/07/2018 05/07/2017, 04/13/2016 Tetanus booster 08/09/2022 08/09/2012 COVID-19 vaccine series ( - season) 2024 Influenza Vaccine (Season Ended) 2025 04/04/2014 Pap test for age 21-65 04/20/2026 , 04/20/2023, 03/25/2020, Additional history exists Tdap Completed 08/09/2012 HIV for age 15-65 Completed 02/03/2013 Pneumococcal series for age 6-49 Aged Out No longer eligible based on patient's age to complete this topic Procedures Procedure Name Priority Date/Time Associated Diagnosis Comments HPV HIGH RISK Routine 04/20/2023 2:40 PM CDT ANTI HIV 1/2 Routine 02/03/2013 4:29 PM CDT Hematuria from Last 3 Months or Most Recently Relevant to Health Maintenance Results * HPV HIGH RISK (04/20/2023 2:40 PM CDT) TYPE 16 Negative Negative 04/26/2023 11:45 AM CDT [facility] TYPE 18 Negative Negative 04/26/2023 11:45 AM CDT [facility] OTHER HIGH RISK TYPES Negative Negative 04/26/2023 11:45 AM CDT [facility] Other (Cervical/Vagina l) 04/20/2023 2:40 PM CDT 04/22/2023 12:57 PM CDT Narrative [facility] - 04/26/2023 11:45 AM CDT HPV types 16, 18, 31, 33, 35, 39, 45, 51, 52, 56, 58, 59, 66 and 68 DNA were undetectable or below the pre-set threshold. Methodology: Anshul Yong 4800 HPV Test us Deven Boyer MD MICROBIOLOGY Final Result [facility] [address] [place] [address], * ANTI HIV 1/2 (02/03/2013 4:29 PM CDT) ANTI HIV 1/2 Non-reacti ve [facility] Blood specimen (specimen) BLOOD SPECIMEN / Unknown 02/03/2013 4:29 PM CDT 02/03/2013 4:23 PM CDT us Jermaine Burton MD SEND OUTS Final R esult [facility] [place] ZIP [id number] [place] [address] from Last 3 Months or Most Recently Relevant to Health Maintenance Insurance [facility] [employer] Care Teams Lacquer Pin Press Operator Relationship Specialty Start Date End Date Pcp, No . PCP - General 03/26/19
--- OUTSIDE RECORDS SUMMARY | 2024-12-27 00:53 | XMS_ITS | Clinical Summary ---
Author Organization [facility] Address [address] [place] [address] Care Team Providers Care Replanter Name Role Phone Unavailable Primary Care Provider Unavailabl e Source Comments Patient records contain information from all sites at [facility]. For routine questions regarding patient records, call [phone] during business hours, M-F 8:00 AM - 5:00 PM Central Time. Record requests for emergency care only can be directed to [phone] at any time.[facility] Allergies No known active allergies [...] a day. 3 Active norgestrel-ethi nyl estradioL (LOW-OGESTREL,Dominic SINGH) 0.3 mg-30 mcg per tablet Take 1 [...] Years Used Date Smoking Tobacco: Never Assessed [facility] Utilities Answer Date Recorded In the past 12 months has [employer], gas, oil, or water [employer] threatened to shut off services in your home? No 07/15/2023 Hunger Vital Sign Answer Date Recorded [...] things needed for daily living? No 07/15/2023 Housing Stability Answer Date Recorded What is your living situation today? 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 Last Filed Vital Signs Vital Sign Reading Time Taken Comments Blood Pressure 111/78 07/19/2023 2:23 PM PROFESSOR OF ENVIRONMENTAL ENGINEERING Pulse 80 07/19/2023 2:23 PM PROFESSOR OF ENVIRONMENTAL ENGINEERING Temperature - - Respiratory Rate - - Oxygen Saturation - - Inhaled Oxygen Concentration - - Weight 86 kg (189 lb 9.5 oz) 07/19/2023 2:23 PM PROFESSOR OF ENVIRONMENTAL ENGINEERING Height 175.1 cm (5' 8.94) 07/19/2023 2:23 PM CS T Body Mass Index 28.05 07/19/2023 2:23 PM PROFESSOR OF ENVIRONMENTAL ENGINEERING Plan of Treatment Health Maintenance Due Date [...] Completed 12/30/2012, 12/04, 08/09/2012, Additional history exists IPV Vaccines Aged Out No longer eligi ble based on patient's age to complete this topic Pneumococcal vaccine (0-49 years) Aged Out No longer eligible based on patient's age to complete this topic Insurance [employer]
== END 2024-12-26 13:49 | disposition home or self-care (01) ==
LOC: NM 13:51
PROVIDERS: PCP Family Medicine; Visit Provider Family Medicine
DX: R10.13 Epigastric pain (principal); R11.0 Nausea
CPT/HCPCS: 78227; A9537; J2805

== ENCOUNTER 2025-03-27 08:35 | Outpatient (CLI) | payer BC, SELFPAY | END 2025-03-27 08:36 | disposition home or self-care (01) | PROVIDERS: PCP Family Medicine; Visit Provider Family Medicine | DX: Z11.3 Encounter for screening for infections with a predominantly sexual mode of transmission (principal) | CPT/HCPCS: 86592; 86593; 86703; 86803; 87340; 87491; 87591 ==

== ENCOUNTER 2025-03-28 07:38 | Outpatient (CLI) | payer BC, SELFPAY | END 2025-03-28 07:39 | disposition home or self-care (01) | LOC: NFLDREF 16:42 | PROVIDERS: PCP Family Medicine; Referring Provider Family Medicine; Visit Provider Family Medicine | DX: R35.0 Frequency of micturition (principal); Z11.3 Encounter for screening for infections with a predominantly sexual mode of transmission | CPT/HCPCS: 87086; 87491; 87591 ==

== ENCOUNTER 2025-06-05 13:32 | Outpatient (CLI) | payer BC, SELFPAY ==
--- NOTE | 2025-06-05 13:45 | CRLHL7_ITS ---
For Patients: As a result of the Century Cures Act, medical imaging exams and procedure reports are released immediately into your electronic medical record. You may view this report before your referring provider. If you have questions, please contact your health care provider. INDICATION: Nontoxic single thyroid nodule COMPARISON: 06/05/2024 TECHNIQUE: Hastings scale and color Doppler images were acquired of the thyroid gland. FINDINGS: Hypoechoic nodule right thyroid lobe measures 1.2 x 1.9 x 1.0 cm, TR 4. Cystic nodule left thyroid lobe measures 7 x 3 x 5 millimeters, TR 2. Hypoechoic nodule left thyroid lobe measures 1.1 x 1.2 x 0.8 cm, previously measuring 1.2 cm. TR 4. The right lobe measures 4.8 x 1.2 x 1.6 cm and the left lobe measures 4.3 x 1.3 x 1.8 cm in size. Isthmus measures 2 millimeters. The color Doppler images demonstrate normal vascularity. There is no evidence of cervical lymphadenopathy or parathyroid mass. IMPRESSION: Solid-appearing nodule right thyroid lobe measures 1.9 cm. FNA recommended. Dictated by David Dumont MD @ 06/05/2025 4:08:54 PM (Electronically Signed)
== END 2025-06-05 13:33 | disposition home or self-care (01) ==
LOC: US 13:33
PROVIDERS: PCP Family Medicine; Visit Provider Family Medicine
DX: E04.1 Nontoxic single thyroid nodule (principal)
CPT/HCPCS: 76536